=== PATIENT | female | born 1985 | race Hispanic/Latino ===

== ENCOUNTER 2017-03-25 13:38 | Observation (INO) | payer BC ==
[2017-03-25 13:43] VITALS: BMI 36.6
--- NOTE | 2017-03-25 13:55 | ED PDOC ---
Arrival/HPI - General Chief Complaint: Substance Abuse Time Seen by Provider: 03/25/17 13:42 Historian: Parent, EMS, Police EM Caveat: Altered Mental Status - History of Present Illness Time/Duration: Other (This morning) Symptom Onset: Gradual Symptom Course: Unchanged Severity Level: Moderate Activities at Onset: Rest Associated Symptoms (Text): 03/25/17 13:52 Mother reports that the patient began to act lethargic around 11:00 this morning. The lethargy worsened and 911 was called at 1300 today. Patient had a prescription for Soma 350 mg #60 filled yesterday, and there are only 34 pills left. The patient is lethargic and unable to give any history. She is oriented to person only. She had recent neck surgery several weeks ago. History of a brain tumor and the patient is blind. Past Medical History - Infectious Disease Hx of Infectious Diseases: None - Tetanus Immunization Tetanus Immunization: Unknown - Cardiac Hx Cardiac Disorders: No - Pulmonary Hx Respiratory Disorders: No - Neurological Hx Neurological Disorder: No Other/Comment: DX OF BRAIN TUMOR AUG 2016 - HEENT Hx HEENT Disorder: Yes Hx Blind: Yes (legally) - Renal Hx Renal Disorder: No - Endocrine/Metabolic Hx Endocrine Disorders: No - Hematological/Oncological Hx Blood Disorders: No - Integumentary Hx Dermatological Disorder: No - Musculoskeletal/Rheumatological Hx Musculoskeletal Disorders: Yes Hx Back Pain: Yes (AND NECK PAIN) - Gastrointestinal Hx Gastrointestinal Disorders: No - Genitourinary/Gynecological Hx Genitourinary Disorders: No Other/Comment: ovarian cyst - Psychiatric Hx Psychophysiologic Disorder: Yes Hx Anxiety: Yes Hx Depression: Yes Hx Substance Use: No - Surgical History Other/Comment: GASTRIC LAP BAND PLACEMENT AND REMOVAL 2014 .REMOVAL FIBROID AUG 2016 - Anesthesia Hx Anesthesia: Yes Hx Anesthesia Reactions: No Hx Malignant Hyperthermia: No Family/Social History - Physician Review Nursing Documentation Reviewed: Yes Family/Social History: Unknown Family HX Smoking Status: Never Smoked Hx Alcohol Use: No Hx Substance Use: No Allergies/Home Meds Allergies/Adverse Reactions: Allergies Penicillins Allergy (Verified 03/25/17 13:43) ANAPHYLAXIS Home Medications: Home Meds Medication Instructions Recorded Confirmed Fluoxetine HCl [Prozac] 40 mg PO DAILY 06/25/16 03/25/17 buPROPion [Wellbutrin] 150 mg PO DAILY 06/25/16 03/25/17 Carisoprodol [Soma] 350 mg PO BID PRN 03/25/17 03/25/17 Review of Systems - Review of Systems Systems not reviewed;Unavailable: Altered Mental Status Physical Exam Vital Signs Temp Pulse Resp BP Pulse Ox 03/25/17 15:33 101 H 19 126/75 98 03/25/17 14:25 98.3 F 104 H 20 116/63 100 Temperature: Afebrile Blood Pressure: Normal Pulse: Regular Respiratory Rate: Normal Appearance: Positive for: Well-Appearing, Non-Toxic, Comfortable, Other (Obese) Pain Distress: None Mental Status: Positive for: other (Oriented 1 only) - Systems Exam Head: Present: Atraumatic, Normocephalic Pupils: Present: Sluggish, Other (Dilated) Extroacular Muscles: Present: EOMI Conjunctiva: Present: Normal Ears: Present: NORMAL TM, Normal Canal. No: Erythema, TM Bulging Mouth: Present: Moist Mucous Membranes Pharnyx: Present: Other (Positive gag). No: ERYTHEMA, EXUDATE, TONSILS ENLARGED Neck: Present: Normal Range of Motion, Other (Well-healing posterior surgical scar with no signs of infection) Respiratory/Chest: Present: Clear to Auscultation, Good Air Exchange. No: Respiratory Distress, Accessory Muscle Use Cardiovascular: Present: Regular Rate and Rhythm, Normal S1, S2. No: Murmurs Abdomen: Present: Normal Bowel Sounds. No: Tenderness, Distention, Peritoneal Signs, Rebound, Guarding Back: Present: Normal Inspection Upper Extremity: Present: Normal Inspection. No: Cyanosis, Edema Lower Extremity: Present: Normal Inspection. No: Edema Neurological: Present: GCS=15, CN II-XII Intact, Speech Normal, Motor Func Grossly Intact, Other (Unable to test sensation coordination gait and stance) Skin: Present: Warm, Dry, Normal Color. No: Rashes Medical Decision Making ED Course and Treatment: 03/25/17 14:19 EKG shows normal sinus rhythm rate approximately [address] and T- wave changes and an old right bundle branch block when compared with EKG of 03/25/17 14:50 Unclear if this is an accidental or intentional overdose. Discussed in detail with her PMD Dr.E Nava. Patient will be admitted to a telemetry observation bed with psychiatrist called in the morning when she is able to communicate better. - Lab Interpretations Lab Results: 03/25/17 14:00 03/25/17 14:00 Lab Results 03/25/17 14:10: Urine Color Yellow, Urine Appearance Sl cloudy, Urine pH 6.0, Ur Specific West >= 1.030, Urine Protein 30 H, Urine Glucose (UA) Negative, Urine Ketones Negative, Urine Blood Negative, Urine Nitrate Negative, Urine Bilirubin Negative, Urine Urobilinogen 0.2, Ur Leukocyte Esterase Negative, Urine RBC Negative, Urine WBC 0 - 2, Ur Epithelial Cells 0 - 2, Urine Bacteria Few, Urine HCG, Qual Negative 03/25/17 14:10: Urine Opiates Screen Positive H, Urine Methadone Screen Negative , Ur Barbiturates Screen Negative, Ur Phencyclidine Scrn Negative, Ur Amphetamines Screen Negative, U Benzodiazepines Scrn Negative, U Oth Cocaine Metabols Negative, U Cannabinoids Screen Negative 03/25/17 14:00: PT 12.0 H, INR 1.11 H, APTT 25.5 03/25/17 14:00: Alcohol, Quantitative < 10 03/25/17 14:00: Salicylates < 1 L, Acetaminophen < 10.0 L 03/25/17 14:00: Sodium 140, Potassium 3.7, Chloride 105, Carbon Dioxide 24, Anion Gap 15, BUN 17, Creatinine 0.9, Est GFR ( Amer) > 60, Est GFR (Non- Af Amer) > 60, Random Glucose 99, Calcium 9.4, Total Bilirubin 0.5, AST 20, ALT 29, Alkaline Phosphatase 89, Total Creatine Kinase 51, Troponin I < 0.01, Total Protein 7.5, Albumin 4.2, Globulin 3.3, Albumin/Globulin Ratio 1.3 03/25/17 14:00: WBC 5.4, RBC 3.95, Hgb 8.4 L, Hct 27.3 L, MCV 69.1 L, MCH 21.3 L , MCHC 30.8 L, RDW 17.2 H, Plt Count 227, MPV 9.4, Gran % 63.6, Lymph % (Auto) 29.7, [place] % (Auto) 4.8, Eos % (Auto) 1.3 L, Baso % (Auto) 0.6, Gran # 3.43, Lymph # 1.6, [place] # 0.3, Eos # 0.1, Baso # 0.03 - RAD Interpretation Radiology Orders: 03/25/17 14:18 HEAD W/O CONTRAST [CT] Stat CT scan of the head as read by the radiologist shows no change in the previously identified brain mass. Bus Assistant: Radiologist Disposition/Present on Arrival - Present on Arrival Any Indicators Present on Arrival: No History of DVT/PE: No History of Uncontrolled Diabetes: No Urinary Catheter: No History of Decub. Ulcer: No History Surgical Site Infection Following: None - Disposition Have Diagnosis and Disposition been Completed?: Yes Diagnosis: Overdose, Altered mental status Disposition: HOSPITALIZED Disposition Time: 14:52 Patient Plan: Observation, Telemetry Patient Problems: Current Active Problems Problem Status Onset Altered mental status Acute Overdose Acute Condition: FAIR
[2017-03-25 14:11] LABS: ADD MANUAL DIFF? NO
[2017-03-25 14:16] LABS: BASO # 0.03 K/mm3 (0.0-2.0); BASO % 0.6 % (0.0-3.0); EOS # 0.1 (0.0-0.7); EOS % 1.3 % (1.5-5.0); GRAN # 3.43 (1.4-6.5); GRAN % 63.6 % (50.0-68.0); HEMATOCRIT 27.3 % (36.0-48.0); LYMPH # 1.6 (1.2-3.4); LYMPH % 29.7 % (22.0-35.0); MEAN CELL VOLUME 69.1 fL (80.0-105.0); MEAN CORPUSCULAR HEMOGLOBIN 21.3 pg (25.0-35.0); MEAN CORPUSCULAR HGB CONC 30.8 g/dl (31.0-37.0); MEAN PLATELET VOLUME 9.4 fl (7.0-11.0); MONO # 0.3 (0.1-0.6); MONO % 4.8 % (1.0-6.0); PLATELET COUNT 227 10^3/uL (120.0-450.0); RED CELL DISTRIBUTION WIDTH 17.2 % (11.5-14.5); WHITE BLOOD COUNT 5.4 10^3/ul (4.5-11.0)
[2017-03-25 14:21] LABS: URINE BILIRUBIN NEGATIVE (NEGATIVE); URINE BLOOD NEGATIVE (NEGATIVE); URINE GLUCOSE (UA) NEGATIVE (NEGATIVE); URINE KETONE NEGATIVE (NEGATIVE); URINE LEUKOCYTE ESTERASE NEGATIVE Leu/uL (NEGATIVE); URINE PROTEIN 30 mg/dL (<30 mg/dL); URINE UROBILINOGEN 0.2 E.U./dL (<1 E.U./dL)
[2017-03-25 14:22] LABS: URINE APPEARANCE SL CLOUDY (CLEAR); URINE COLOR YELLOW (YELLOW)
[2017-03-25 14:26] LABS: ALB/GLOB RATIO 1.3 (1.1-1.8); ALKALINE PHOSPHATASE 89 U/L (38-133); ALT/SGPT 29 U/L (7-56); AST/SGOT 20 U/L (15-39); BILIRUBIN,TOTAL 0.5 mg/dL (0.2-1.3); BLOOD UREA NITROGEN 17 mg/dL (7-21); CALCIUM 9.4 mg/dL (8.4-10.5); CARBON DIOXIDE 24 mmol/L (21-33); CHLORIDE 105 mmol/L (98-107); GFR AFRICAN-AMERICAN > 60; GLUCOSE,RANDOM 99 mg/dL (70-110); INR 1.11 (0.93-1.08); PARTIAL THROMBOPLASTIN TIME 25.5 Seconds (23.7-30.8); POTASSIUM 3.7 mmol/L (3.6-5.0); SODIUM 140 mmol/L (132-148); TOTAL PROTEIN 7.5 g/dL (5.8-8.3)
[2017-03-25 14:33] LABS: URINE BACTERIA FEW (NEG); URINE EPITHELIAL CELLS 0 - 2 /hpf (0-5); URINE RBC NEGATIVE /hpf (0-2); URINE WBC 0 - 2 /hpf (0-6)
[2017-03-25 14:38] LABS: TROPONIN I < 0.01 ng/mL
--- NOTE | 2017-03-25 15:33 | CT ---
PROCEDURE: CT HEAD WITHOUT CONTRAST. HISTORY: ams COMPARISON: 10/05/2016 TECHNIQUE: Axial computed tomography images were obtained through the head/brain without intravenous contrast. Radiation dose: Total exam DLP = 725.84 mGy-cm. This CT exam was performed using one or more of the following dose reduction techniques: Automated exposure control, adjustment of the mA and/or kV according to patient size, and/or use of iterative reconstruction technique. FINDINGS: HEMORRHAGE: No intracranial hemorrhage. BRAIN: 9 mm calcified right CP angle mass, likely extra-axial, unchanged from 10/05/2016. Most likely this represents meningioma. Rule out thrombosed aneurysm. Consider further evaluation with gadolinium enhanced magnetic resonance imaging. No other intracranial mass. No evidence of acute infarct. VENTRICLES: Unremarkable. No hydrocephalus. CALVARIUM: Unremarkable. PARANASAL SINUSES: Unremarkable as visualized. No significant inflammatory changes. MASTOID AIR CELLS: Unremarkable as visualized. No inflammatory changes. OTHER FINDINGS: None. IMPRESSION: 9 mm calcified right CP angle mass unchanged from 10/05/2016. Recommend evaluation with gadolinium enhanced magnetic resonance imaging. No additional abnormality.
[2017-03-25] MEDS ORDERED: Dextrose 5%/0.45% NS 1,000 ML IV SCH (17:45)
[2017-03-25 18:28] VITALS: O2SAT 98
--- NOTE | 2017-03-26 01:30 | CARD ---
APPROVED REPORT EKG Measurement Heart [id number] <Conclusion> Normal sinus rhythm Possible Left atrial enlargement Incomplete right bundle branch block Left ventricular hypertrophy Nonspecific T wave abnormality Prolonged QT Abnormal ECG
[2017-03-26 06:37] VITALS: RESP 20
[2017-03-26] MEDS ORDERED: Oxycodone/Acetaminophen 5/325 mg Tab PO PRN ×2 (09:48→12:19)
[2017-03-26] MEDS ORDERED: oxyCODONE 10 mg ER Tab (oxyCONTIN) PO SCH (10:00)
[2017-03-26 12:19] VITALS: BP 133/79; PULSE 72; TEMP 98.4
--- NOTE | 2017-03-26 13:26 | CON ---
DATE: 03/26/2017 HISTORY OF PRESENT ILLNESS: The patient is a 32-year-old white female. I reviewed the charts, spoke to patient, spoke to patient's mother. The patient apparently was brought to the Emergency Room aft er her mother called the ambulance, having found her daughter in an incoherent state in her home. Th e patient apparently had been given prescriptions by her primary care physician of [facility]. The patient states she was having problems with pain and spasm in her neck. The patient started taking the pres cription, took 1, then 2, then 3 and then apparently became incoherent and does not remember anything . The patient claims that she was not trying to kill herself, that she was only trying to get the de sired effect from medication. The patient's mother found originally there were 60 tablets in the bot tle just the day before prescribed and then when she counted them, there were only 34 left. The cydney ent states she is on multiple antidepressants which she has been on for 8 years, now being prescribed by her family physician. 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 PAST MEDICAL HISTORY: She claims she started seeing a psychiatrist for depression at the age of 24, saw 3 different psychiatrists, but has not seen a psychiatrist for the past year. She is treated wit h Prozac and Wellbutrin, which she is maintained with her primary care physician. The patient also t akes oxycodone 30 mg twice a day for neck pain and other pain issues. The patient has never had any other substance abuse. She has never had any suicide attempts. The patient has never had any psychi atric hospitalizations. 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 CURRENT MEDICATIONS: At home include Wellbutrin 150 mg daily, Prozac 40 mg daily, oxycodone 30 mg tw ice a day. CURRENT LABORATORY DATA: Her white count is 5800; hemoglobin is 8.4; platelet count 227,000. Her me tabolic profile is all totally normal. Her urine for toxicology is positive for opiates. She had no alcohol in her system. The patient's urinalysis was essentially normal. Her urine hCG t est was negative. PERSONAL HISTORY: She is unmarried. She is a college graduate. She lives at home with her mother a nd father. She has a sister and brother who live in [place] and [place]. 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 REVIEW OF SYSTEMS: She claims that she has neck stiffness and discomfort. Otherwise, she has no oth er contributory complaints on review of systems. PHYSICAL EXAMINATION: VITAL SIGNS: Her blood pressure is 130/88, pulse 79. She is afebrile, respirations 20 per minute. PSYCHIATRIC: Her mental status: She is awake, alert, coherent, lucid, oriented x 3. Speech is flue nt. Thoughts are well integrated. No suicidal ideation or psychotic symptoms. The patient's recent and remote memory except for events of the past 2 days after taking an overdose was within normal li mits. IMPRESSION: The patient has an accidental overdose and subsequent delirium from Soma in combination with oxycodone, Wellbutrin and Prozac. She has a history of recurrent depression. She is on mainten ance antidepressant medication. She has no evidence of any current signs of depression or suicidal i deation or psychosis. PLAN: From my point of view, the patient can be discharged. I strongly recommend to patient that e consults periodically with a psychiatrist on an outpatient basis to monitor at the very least her p sychotropic medications and other medicines that she is receiving. Andrew Perez MD cc: [id number] TT: 03/26/2017 13:26:23 Confirmation # [id number] Dictation # [id number]
== END 2017-03-26 15:01 | disposition home or self-care (01) ==
LOC: ED 13:38 → ERH 14:54 → 2RNO 17:54
PROVIDERS: ADMIT Internal Medicine; ATTEND Internal Medicine
DX: T42.8X1A Poisoning by antiparkinsonism drugs and other central muscle-tone depressants, accidental (unintentional), initial encounter (principal); T40.2X1A Poisoning by other opioids, accidental (unintentional), initial encounter; T43.291A Poisoning by other antidepressants, accidental (unintentional), initial encounter; T43.221A Poisoning by selective serotonin reuptake inhibitors, accidental (unintentional), initial encounter; R41.0 Disorientation, unspecified; F33.9 Major depressive disorder, recurrent, unspecified; H54.8 Legal blindness, as defined in USA; Y92.009 Unspecified place in unspecified non-institutional (private) residence as the place of occurrence of the external cause
CPT/HCPCS: 70450; 80053; 81001; 82550; 82948; 84484; 84703; 85025; 85610; 85730; 93005; 99285; G0378; G0480; J7042

== ENCOUNTER 2018-04-19 13:18 | Emergency (ER) | payer BC ==
[2018-04-19 13:29] VITALS: RESP 18; TEMP 98.3; O2SAT 100; BMI 44.2
[2018-04-19] MEDS ORDERED: HYDROmorphone 0.5 mg/0.5 ml ISec IVP STA (13:55)
[2018-04-19] MEDS ORDERED: Sodium Chloride 0.9% 500 ML IV STA (13:59)
--- NOTE | 2018-04-19 14:03 | ED PDOC ---
Arrival/HPI - General Chief Complaint: Pain, Chronic Time Seen by Provider: 04/19/18 13:54 Historian: Patient, Parent ( is at bedside) - History of Present Illness Narrative History of Present Illness (Text): 04/19/18 14:00 pt p/w + sudden onset of right neck spasm/pain, at most pain is 8-9/10; pt states the symptom started ~ 8am this morning, pt was just sitting at home, no extraordinary tasks performed prior to onset of her neck pain, no new medications/foods/herbal supplements; pt denied fever/chills/sweats, no chest pain/shortness of breath/palpitations, no abd pain, + mild nausea, no vomiting, + profuse sweating, mild dizziness, no headache/vision changes, no speech changes, no urinary/bowel changes, no fall/trauma/sick contact, no travel; pt states she has had prior similar symptoms in the past prior to her cervical surgery and she would usually have acute flares/neck pain every few months; pt states no arm/leg weakness, no numbness/tingling; pt denied facial changes; pt is here for further eval. pt's without other complaints. PCP: Dr Goldberg Neurosurg: Dr Valentin (bantry) right hand dominate pt lives with family at home Time/Duration: Prior to Arrival Symptom Onset: Sudden Symptom Course: Worsening Quality: Tightness, Cramping Severity Level: Severe Activities at Onset: Rest Context: Home Past Medical History - Provider Review Nursing Documentation Reviewed: Yes - Travel History Have you recently traveled outside [place] w/in the past 3 mons?: No - Past History Past History: Non-Contributing - Infectious Disease Hx of Infectious Diseases: None - Tetanus Immunization Tetanus Immunization: Unknown - Reproductive Menopause: No Currently : Unknown - Cardiac Hx Cardiac Disorders: No - Pulmonary Hx Respiratory Disorders: No - Neurological Hx Neurological Disorder: No Other/Comment: DX OF BRAIN TUMOR AUG 2016 - HEENT Hx HEENT Disorder: Yes Hx Blind: Yes (legally) - Renal Hx Renal Disorder: No - Endocrine/Metabolic Hx Endocrine Disorders: No - Hematological/Oncological Hx Blood Disorders: No - Integumentary Hx Dermatological Disorder: No - Musculoskeletal/Rheumatological Hx Falls: No - Gastrointestinal Hx Gastrointestinal Disorders: No - Genitourinary/Gynecological Hx Genitourinary Disorders: No Other/Comment: ovarian cyst - Psychiatric Hx Psychophysiologic Disorder: Yes Hx Anxiety: Yes Hx Depression: Yes Hx Substance Use: No - Surgical History Other/Comment: GASTRIC LAP BAND PLACEMENT AND REMOVAL 2014 .REMOVAL FIBROID AUG 2016 - Anesthesia Hx Anesthesia: Yes Hx Anesthesia Reactions: No Hx Malignant Hyperthermia: No Family/Social History - Physician Review Nursing Documentation Reviewed: Yes Family/Social History: No Known Family HX Smoking Status: Never Smoked Hx Alcohol Use: No Hx Substance Use: No Hx Substance Use Treatment: No Allergies/Home Meds Allergies/Adverse Reactions: Allergies Penicillins Allergy (Verified 04/19/18 16:51) ANAPHYLAXIS Home Medications: Home Meds Medication Instructions Recorded Confirmed Fluoxetine HCl [Prozac] 40 mg PO DAILY 06/25/16 04/19/18 buPROPion [Wellbutrin] 150 mg PO DAILY 06/25/16 04/19/18 oxyCODONE/Acetaminophen [Percocet 30 mg PO TID 04/19/18 04/19/18 5/325 mg Tab] Review of Systems - Review of Systems Constitutional: Normal Eyes: Normal ENT: Normal Respiratory: Normal Cardiovascular: Normal Gastrointestinal: Normal Genitourinary Female: Normal Musculoskeletal: Neck Pain. absent: Arthralgias, Back Pain, Joint Swelling, Myalgias Skin: Normal Neurological: Headache, Other (right neck pain/spasm) Endocrine: Normal Hemo/Lymphatic: Normal Psychiatric: Normal Physical Exam - Physical Exam Narrative Physical Exam (Text): 04/19/18 14:02 General: alert/awake, GCS = 15, oriented x 3, resting in bed, uncomfortable, cooperative, interactive; moderate distress due to pain Head: NC/AT EYE: PERRLA, EOMI, sclera anicteric, no nystagmus, no photophobia; visual field intact b/l Facial: WNL Oral: uvula/tongue are midline, no exudate/lesions, no drooling/stridor, no dysphonia; intact dentitions; moist oral mucosa NECK: + spasm to neck is noted, pt's neck turned to the left, difficulty with turn neck to the right, no midline tenderness, no nuchal rigidity, no meningeal signs; no step off; pt is wearing a soft collar Chest: CTA b/l, no w/r/r; no tachypenia, no accessory muscle use noted Cardiac: +S1, +S2, no m/r/r, no tachycardia Abdominal: +BS, soft/nd/nt, well nourished/obese patient; no masses/rebound/ guarding/rigidity; no clarke's sign, no mcburney's point tenderness Extremities: intact ROM, strength 5/5 grossly intact in all limbs, neurovasc intact b/l; + ambulatory; reflex +2/2; no pitting edema/swelling b/l; no Luke' s sign b/l BACK: no step off, no midline tenderness, NO crepitus, no gross deformities noted; Intact ROM SKIN: cap refill < 1 sec, no ulcerations, no petechiae, no rashes; + diaphoresis NEURO: CNII-XII WNL, no facial asymmetries, no slurr speech, oriented x 3 NIH stroke scale ~ 0 Psych: normal insight, normal affect; follows command with ease Vital Signs Reviewed: Yes Vital Signs Temp Pulse Resp BP Pulse Ox 04/19/18 17:00 94 H 18 175/86 H 100 04/19/18 15:07 18 148/98 H 04/19/18 13:25 98.3 F 107 H 18 147/106 H 100 Temperature: Afebrile Blood Pressure: Hypertensive Pulse: Tachycardic Respiratory Rate: Normal Appearance: Positive for: Well-Appearing, Uncomfortable Pain Distress: Moderate Mental Status: Positive for: Alert and Oriented X 3 - Systems Exam Head: Present: Atraumatic, Normocephalic Medical Decision Making ED Course and Treatment: 04/19/18 14:02 Impression: right neck spasm/pain i have consider all the differential diagnosis regarding pt's chief medical complaints/clinical findings, including but are not limited to: neck spasm/pain ; unlikely infection; unlikely meningitis A/P: right neck pain/spasm - ct - labs - iv - supportive care - observe/reevaluation 04/19/18 16:38 On re-evaluation, patient reports marked improvement in her pain; she states the pain is currently 1-2/10. She is currently awaiting CT C-Spine results. Will continue to monitor. 04/19/18 17:28 pt continues to have near resolution of pain/spasm of her neck/cervical region pt is comfortable pt is made aware of her medical results pt is encouraged no heavy lifting/prolonged standing/walking pt will follow up as directed pt will be discharged home improved vital signs are noted Paging Dr Starkey (ortho at [place]) to notify them of pt's emergency department presentation/CT results 04/19/18 18:[address] Starkey, made aware of pt's emergency department presentation/ complaints/mgt/txt, agrees with emergency department mgt/txt, and will follow up with patient as outpt next week Re-evaluation Time: 16:30 Reassessment Condition: Improved - Lab Interpretations Lab Results: 04/19/18 14:30 04/19/18 14:30 Lab Results 04/19/18 14:30: Sodium 143, Potassium 4.0, Chloride 103, Carbon Dioxide 25, Anion Gap 19, BUN 16, Creatinine 0.8, Est GFR ( Amer) > 60, Est GFR (Non- Af Amer) > 60, Random Glucose 112 H, Calcium 9.8, Total Bilirubin 0.3, AST 30, ALT 47, Alkaline Phosphatase 108, Total Protein 8.3, Albumin 4.7, Globulin 3.5, Albumin/Globulin Ratio 1.3 04/19/18 14:30: WBC 9.3 D, RBC 5.48, Hgb 13.2, Hct 41.3, MCV 75.4 L, MCH 24.1 L , MCHC 32.0, RDW 15.0 H, Plt Count 358, MPV 9.1, Gran % 62.6, Lymph % (Auto) 31.4, [place] % (Auto) 4.9, Eos % (Auto) 0.9 L, Baso % (Auto) 0.2, Gran # 5.85, Lymph # (Auto) 2.9, [place] # (Auto) 0.5, Eos # (Auto) 0.1, Baso # (Auto) 0.02 04/19/18 14:15: Urine HCG, Qual Negative I have reviewed the lab results: Yes Interpretation: All labs normal - RAD Interpretation Narrative RAD Interpretations (Text): 04/19/18 16:18 PROCEDURE: CT HEAD WITHOUT CONTRAST. HISTORY: hx of brain lesion, no trauma, R neck pain/spasm COMPARISON: 04/25/2017 TECHNIQUE: Axial computed tomography images were obtained through the head/brain without intravenous contrast. Radiation dose: Total exam DLP = 841.58 mGy-cm. This CT exam was performed using one or more of the following dose reduction techniques: Automated exposure control, adjustment of the mA and/or kV according to patient size, and/or use of iterative reconstruction technique. FINDINGS: HEMORRHAGE: No intracranial hemorrhage. BRAIN: Confirmation of right CPA mass less than 1 cm calcified consistent with an angioma, finding identified on the prior study. There is no interval change. No atrophy or chronic microvascular ischemic changes. VENTRICLES: Unremarkable. No hydrocephalus. CALVARIUM: Unremarkable. PARANASAL SINUSES: Unremarkable as visualized. No significant inflammatory changes. MASTOID AIR CELLS: Unremarkable as visualized. No inflammatory changes. OTHER FINDINGS: None. IMPRESSION: No acute intracranial abnormalities. No significant findings to account for the clinical presentation. 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 Overall, no interval change. ---- PROCEDURE: CT cervical spine 04/19/2018 HISTORY: Status post cervical spine surgery surg 1 year ago, now with severe spasm COMPARISON: Correlation made with plain film radiographs of the cervical spine 10/05/2016 TECHNIQUE: Contiguous helical/ transaxial sections were obtained of the cervical spine without the use of intravenous contrast. Coronal and sagittal reformatted images were created and reviewed. Radiation dose: Total exam DLP = 777.73 mGy-cm. This CT exam was performed using one or more of the following dose reduction techniques: Automated exposure control, adjustment of the mA and/or kV according to patient size, and/or use of iterative reconstruction technique. . FINDINGS: VERTEBRAE: The current study reveals multilevel bilateral laminectomy from the C3 through the C6-C7 levels. . . There has been posterior fixation accomplished by placement of bilateral Moody rods that are attached to the right and left pedicles of the C3, through the C7 segments. There are the linear bone lucencies surrounding posterior fixation screws at C7 segment bilaterally with diameters ranging up to and greater than 2 mm along the posterior margins of the screws particularly along the at the posterior entry sites of the fixation screws. The possibility of loosening or infection to be considered however former is favored due to the smooth cortical of appearance of the inner of margins of the screw holes pain no obvious cortical destructive changes. . Hardware is otherwise intact. There is mild of reversal of the normal cervical lordosis. Vertebral bodies and facets otherwise normally aligned. DISCS/SPINAL CANAL/NEURAL FORAMINA: Mild multilevel degenerative spondylosis. Changes include varying degrees of mild the disc space narrowing more so along the anterior disc margins with small marginal anterior osteophyte formation. No obvious disc herniation seen at any level however the canal is partially obscured by streak and beam hardening artifact arising from posterior fixation hardware. . The overall bony canal however is quite capacious due to the bilateral laminectomy defects. The exit foramina appear adequate at the C2-C3, C3-C4 and slightly narrowed on the right side at the C4-C5 level due to overgrown facets. Exit foramina appear marginal the minimally narrowed at C5-C6 level. PARASPINAL SOFT TISSUES: Paraspinal soft tissues unremarkable OTHER FINDINGS: None. IMPRESSION: Multilevel bilateral laminectomy and posterior fixation involving the C3 through the C6-C7 levels. There are lucencies surrounding the inferior fixation screws at the C7 level which range up to and over 2 mm at the level of the posterior entry sites. The possibility of loosening or infection at to be considered although the former on is favored compared to the latter due to smooth appearing inner surfaces of the screw hole some cells with no obvious destructive changes hardware is otherwise intact Radiology Orders: 04/19/18 13:58 HEAD W/O CONTRAST [CT] Stat 04/19/18 13:59 CERVICAL SPINE W/O CONTRAST [CT] Stat Quality Control Tester: Radiologist - Medication Orders Current Medication Orders: Discontinued Medications Diazepam (Valium) 10 mg PO ONCE ONE PRN Reason: Protocol Stop: 04/19/18 13:56 Last Admin: 04/19/18 14:09 Dose: 10 mg Hydromorphone HCl (Dilaudid) 1 mg IVP STAT STA Stop: 04/19/18 13:56 Last Admin: 04/19/18 14:08 Dose: 1 mg MAR Pain Assessment Document 04/19/18 14:08 TIFFANI (Rec: 04/19/18 14:08 TIFFANI [id number]) Pain Reassessment Is this a pain reassessment? No Sleep Is patient sleeping during reassessment? No Presence of Pain Presence of Pain Yes IVP Administration Document 04/19/18 14:08 TIFFANI (Rec: 04/19/18 14:08 [facility] [id number]) Charges for Administration # of IVP Administrations 1 Re-Assess: GERALDO Pain Assessment Document 04/19/18 15:08 TIFFANI (Rec: 04/19/18 17:04 TIFFANI [id number]) Pain Reassessment Is this a pain reassessment? Yes Sleep Is patient sleeping during reassessment? No Presence of Pain Presence of Pain Yes Pain Scale Used Pain Scale Used Numeric Description Description Intermittent Intensity of Pain at present 4 Sodium Chloride (Sodium Chloride 0.9%) 500 mls @ 999 mls/hr IV .Q31M STA Stop: 04/19/18 14:29 Last Admin: 04/19/18 14:11 Dose: 999 mls/hr eMAR Start Stop Document 04/19/18 14:11 TIFFANI (Rec: 04/19/18 14:12 [facility] [id number]) Intravenous Solution Start Date 04/19/18 Start Time 14:11 End Date 04/19/18 End time 15:11 Total Infusion Time 60 Ketorolac Tromethamine (Toradol) 30 mg IVP STAT STA Stop: 04/19/18 13:56 Last Admin: 04/19/18 14:09 Dose: 30 mg GERALDO Pain Assessment Document 04/19/18 14:09 TIFFANI (Rec: 04/19/18 14:09 [facility] [id number]) Pain Reassessment Is this a pain reassessment? No Sleep Is patient sleeping during reassessment? No Presence of Pain Presence of Pain Yes IVP Administration Document 04/19/18 14:09 TIFFANI (Rec: 04/19/18 14:09 [id number]) Charges for Administration # of IVP Administrations 1 Disposition/Present on Arrival - Present on Arrival Any Indicators Present on Arrival: No History of DVT/PE: No History of Uncontrolled Diabetes: No Urinary Catheter: No History of Decub. Ulcer: No History Surgical Site Infection Following: None - Disposition Have Diagnosis and Disposition been Completed?: Yes Diagnosis: Spasm of cervical paraspinous muscle, Cervical pain, Elevated blood pressure reading Disposition: HOME/ ROUTINE Disposition Time: 17:08 Patient Plan: Discharge Condition: STABLE Discharge Instructions (ExitCare): Muscle Spasms (DC), Chronic Neck Pain (DC), Hypertension (ED) Print Language: TURKISH Additional Instructions: Make sure to see your doctor in 1-2 days DRINK PLENTY OF FLUIDS take your medications as prescribed AVOID heavy lifting AVOID prolonged standing RETURN TO ED IF worse pain, cant breath, persistent vomiting, high fever >101- 102 for hours, altered behavior, slurr speech, facial changes, focal weakness ( arm/leg or both), unable to urinate, heavy/persistent bleeding, passing out, chest pain, or other medical emergencies Prescriptions: diaZEpam [Valium] 5 mg PO TID PRN #12 tab PRN Reason: Muscle Spasm Ibuprofen [Motrin] 600 mg PO QID PRN #30 tab PRN Reason: Pain, Mild (1-3) Referrals: Candelario Nava MD [Primary Care Provider] - Follow up with primary Forms: [employer] (Greek)
[2018-04-19 14:46] LABS: BASO # 0.02 K/mm3 (0.0-2.0); BASO % 0.2 % (0.0-3.0); EOS # 0.1 (0.0-0.7); EOS % 0.9 % (1.5-5.0); GRAN # 5.85 (1.4-6.5); GRAN % 62.6 % (50.0-68.0); HEMOGLOBIN 13.2 g/dL (12.0-16.0); LYMPH # 2.9 (1.2-3.4); LYMPH % 31.4 % (22.0-35.0); MEAN CELL VOLUME 75.4 fl (80.0-105.0); MEAN CORPUSCULAR HEMOGLOBIN 24.1 pg (25.0-35.0); MEAN PLATELET VOLUME 9.1 fl (7.0-11.0); MONO # 0.5 (0.1-0.6); MONO % 4.9 % (1.0-6.0); RBC 5.48 10^6/uL (3.5-6.1); WHITE BLOOD COUNT 9.3 10^3/ul (4.5-11.0)
[2018-04-19 14:48] LABS: ALB/GLOB RATIO 1.3 (1.1-1.8); ALBUMIN 4.7 g/dL (3.0-4.8); ALT/SGPT 47 U/L (7-56); AST/SGOT 30 U/L (14-36); BLOOD UREA NITROGEN 16 mg/dL (7-21); CALCIUM 9.8 mg/dL (8.4-10.5); GFR AFRICAN-AMERICAN > 60; GFR NON-AFRICAN AMERICAN > 60
--- NOTE | 2018-04-19 16:20 | CT ---
PROCEDURE: CT HEAD WITHOUT CONTRAST. HISTORY: hx of brain lesion, no trauma, R neck pain/spasm COMPARISON: 04/25/2017 TECHNIQUE: Axial computed tomography images were obtained through the head/brain without intravenous contrast. Radiation dose: Total exam DLP = 841.58 mGy-cm. This CT exam was performed using one or more of the following dose reduction techniques: Automated exposure control, adjustment of the mA and/or kV according to patient size, and/or use of iterative reconstruction technique. FINDINGS: HEMORRHAGE: No intracranial hemorrhage. BRAIN: Confirmation of right CPA mass less than 1 cm calcified consistent with an angioma, finding identified on the prior study. There is no interval change. No atrophy or chronic microvascular ischemic changes. VENTRICLES: Unremarkable. No hydrocephalus. CALVARIUM: Unremarkable. PARANASAL SINUSES: Unremarkable as visualized. No significant inflammatory changes. MASTOID AIR CELLS: Unremarkable as visualized. No inflammatory changes. OTHER FINDINGS: None. IMPRESSION: No acute intracranial abnormalities. No significant findings to account for the clinical presentation. 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 Overall, no interval change.
--- NOTE | 2018-04-19 16:52 | CT ---
PROCEDURE: CT cervical spine 04/19/2018 HISTORY: Status post cervical spine surgery surg 1 year ago, now with severe spasm COMPARISON: Correlation made with plain film radiographs of the cervical spine 10/05/2016 TECHNIQUE: Contiguous helical/ transaxial sections were obtained of the cervical spine without the use of intravenous contrast. Coronal and sagittal reformatted images were created and reviewed. Radiation dose: Total exam DLP = 777.73 mGy-cm. This CT exam was performed using one or more of the following dose reduction techniques: Automated exposure control, adjustment of the mA and/or kV according to patient size, and/or use of iterative reconstruction technique. . FINDINGS: VERTEBRAE: The current study reveals multilevel bilateral laminectomy from the C3 through the C6-C7 levels. . . There has been posterior fixation accomplished by placement of bilateral Moody rods that are attached to the right and left pedicles of the C3, through the C7 segments. There are the linear bone lucencies surrounding posterior fixation screws at C7 segment bilaterally with diameters ranging up to and greater than 2 mm along the posterior margins of the screws particularly along the at the posterior entry sites of the fixation screws. The possibility of loosening or infection to be considered however former is favored due to the smooth cortical of appearance of the inner of margins of the screw holes pain no obvious cortical destructive changes. . Hardware is otherwise intact. There is mild of reversal of the normal cervical lordosis. Vertebral bodies and facets otherwise normally aligned. DISCS/SPINAL CANAL/NEURAL FORAMINA: Mild multilevel degenerative spondylosis. Changes include varying degrees of mild the disc space narrowing more so along the anterior disc margins with small marginal anterior osteophyte formation. No obvious disc herniation seen at any level however the canal is partially obscured by streak and beam hardening artifact arising from posterior fixation hardware. . The overall bony canal however is quite capacious due to the bilateral laminectomy defects. The exit foramina appear adequate at the C2-C3, C3-C4 and slightly narrowed on the right side at the C4-C5 level due to overgrown facets. Exit foramina appear marginal the minimally narrowed at C5-C6 level. PARASPINAL SOFT TISSUES: Paraspinal soft tissues unremarkable OTHER FINDINGS: None. IMPRESSION: Multilevel bilateral laminectomy and posterior fixation involving the C3 through the C6-C7 levels. There are lucencies surrounding the inferior fixation screws at the C7 level which range up to and over 2 mm at the level of the posterior entry sites. The possibility of loosening or infection at to be considered although the former on is favored compared to the latter due to smooth appearing inner surfaces of the screw hole some cells with no obvious destructive changes hardware is otherwise intact
[2018-04-19 17:13] VITALS: PULSE 94
[2018-04-19 18:06] VITALS: BP 175/86
== END 2018-04-19 17:30 | disposition home or self-care (01) ==
LOC: ED 13:18
DX: M62.838 Other muscle spasm (principal); M54.2 Cervicalgia; R03.0 Elevated blood-pressure reading, without diagnosis of hypertension
CPT/HCPCS: 70450; 72125; 80053; 84703; 85025; 96361; 96374; 96375; 99283; J1170; J1885; J7040

== ENCOUNTER 2018-04-23 10:21 | Emergency (ER) | payer BC ==
[2018-04-23 10:22] VITALS: BMI 44.2
[2018-04-23 11:01] VITALS: RESP 18
--- NOTE | 2018-04-23 11:11 | ED PDOC ---
Arrival/HPI - General Time Seen by Provider: 04/23/18 10:54 Historian: Patient - History of Present Illness Narrative History of Present Illness (Text): 04/23/18 11:10 This 33 yo female with pmh chronic neck pain, legally blind female since , presents to this ED c/o x 4 days. Patient stated she woke up with neck pain. She stated she came to this ED for neck pain. Patient was seen here and she had labs, and CT scan of head and neck. Both CT scan were negative for acute finding. Patient pain had improved. Patient was recommended to f/u Dr. Starkey, surgeon from [facility]. Patient admits similar neck pain in the past. Patient denies fever, recent travel, sob, cp, abdominal pain, urinary symptoms, or dizziness. Time/Duration: Other (see hpi) Quality: Aching Context: Home Past Medical History - Provider Review Nursing Documentation Reviewed: Yes - Past History Past History: Non-Contributing - Infectious Disease Hx of Infectious Diseases: None - Tetanus Immunization Tetanus Immunization: Unknown - Cardiac Hx Cardiac Disorders: No - Pulmonary Hx Respiratory Disorders: No - Neurological Hx Neurological Disorder: No Other/Comment: DX OF BRAIN TUMOR AUG 2016 - HEENT Hx HEENT Disorder: Yes Hx Blind: Yes (legally) - Renal Hx Renal Disorder: No - Endocrine/Metabolic Hx Endocrine Disorders: No - Hematological/Oncological Hx Blood Disorders: No - Integumentary Hx Dermatological Disorder: No - Musculoskeletal/Rheumatological Hx Falls: No - Gastrointestinal Hx Gastrointestinal Disorders: No - Genitourinary/Gynecological Hx Genitourinary Disorders: No Other/Comment: ovarian cyst - Psychiatric Hx Psychophysiologic Disorder: Yes Hx Anxiety: Yes Hx Depression: Yes Hx Substance Use: No - Surgical History Other/Comment: GASTRIC LAP BAND PLACEMENT AND REMOVAL 2014 .REMOVAL FIBROID AUG 2016 - Anesthesia Hx Anesthesia: Yes Hx Anesthesia Reactions: No Hx Malignant Hyperthermia: No Family/Social History - Physician Review Nursing Documentation Reviewed: Yes Family/Social History: Other (noncontributory) Smoking Status: Never Smoked Hx Alcohol Use: No Hx Substance Use: No Hx Substance Use Treatment: No Allergies/Home Meds Allergies/Adverse Reactions: Allergies Penicillins Allergy (Verified 04/23/18 11:23) ANAPHYLAXIS Review of Systems - Review of Systems Constitutional: Normal. absent: Fatigue, Weight Change, Fevers, Night Sweats Eyes: Normal ENT: Normal Respiratory: Normal Cardiovascular: Normal Gastrointestinal: Normal Genitourinary Female: Normal Musculoskeletal: Neck Pain Skin: Normal Neurological: Normal Endocrine: Normal Hemo/Lymphatic: Normal Psychiatric: Normal Physical Exam Vital Signs Temp Pulse Resp BP Pulse Ox 04/23/18 12:58 99.2 F 86 18 141/76 99 04/23/18 10:58 98.1 F 96 H 18 143/88 98 Temperature: Afebrile Blood Pressure: Normal Pulse: Regular Respiratory Rate: Normal Appearance: Positive for: Well-Appearing, Non-Toxic, Comfortable Pain Distress: None Mental Status: Positive for: Alert and Oriented X 3 - Systems Exam Head: Present: Atraumatic, Normocephalic Pupils: Present: PERRL Extroacular Muscles: Present: EOMI Conjunctiva: Present: Normal Mouth: Present: Moist Mucous Membranes Neck: Present: Paraspinal Tenderness ((+) mild left paravertebral tenderness. No vertebral point tenderness. No vertebral step off.), Trachea Midline. No: Meningeal Signs, MIDLINE TENDERNESS Respiratory/Chest: Present: Clear to Auscultation, Good Air Exchange. No: Respiratory Distress, Accessory Muscle Use Cardiovascular: Present: Regular Rate and Rhythm, Normal S1, S2. No: Murmurs Abdomen: No: Tenderness, Distention, Peritoneal Signs Back: Present: Normal Inspection. No: CVA Tenderness Upper Extremity: Present: Normal Inspection, Normal ROM, NORMAL PULSES, Neurovascularly Intact, Capillary Refill < 2s. No: Cyanosis, Edema Lower Extremity: Present: Normal Inspection, NORMAL PULSES, Normal ROM, Neurovascularly Intact, Capillary Refill < 2 s. No: Edema Neurological: Present: GCS=15, CN II-XII Intact, Speech Normal, Motor Func Grossly Intact, Normal Sensory Function, Normal Cerebellar Funct, Gait Normal, Memory Normal Skin: Present: Warm, Dry, Normal Color. No: Rashes Psychiatric: Present: Alert, Oriented x 3, Normal Insight, Normal Concentration Medical Decision Making ED Course and Treatment: 04/23/18 12:16 Patient does not want to take Valium or Toradol, unless she is given Dilaudid. Patient and patient's mother stated Dilaudid is the only medication which relief her pain. Patient feels she is going to Opiods withdrawal since she has not been able to take pain medication for 3 days. 06/19/18 18:[address] Nava regarding MRI of cervical spine, which was negative for abscess or acute findings. Physical exam was unremarkable , except for left paravertebral tenderness, no cellulitis, no skin lesion, or ecchymosis. Patient is afebrile. I reviewed labs with WBC of 12, and ESR 26. Patient symptoms have improved. Dr. Nava agreed with plan for d/c patient home, to prescribed anti-imflammatory meds , since patient should have enough opiods pain medication. And to see Dr. Nava tomorrow morning. Also to have patient see Chance Brice, neurosurgeon in 1-2 days. Re-evaluation Time: 15:31 Reassessment Condition: Re-examined - Lab Interpretations Lab Results: 04/23/18 11:55 04/23/18 11:55 Lab Results 04/23/18 15:08: PT 12.8 H, INR 1.12 H, APTT 30.6 04/23/18 11:55: ESR 27 H 04/23/18 11:55: Urine HCG, Qual Negative 04/23/18 11:55: Sodium 148, Potassium 3.5 L, Chloride 104, Carbon Dioxide 27, Anion Gap 20, BUN 13, Creatinine 0.8, Est GFR ( Amer) > 60, Est GFR (Non- Af Amer) > 60, Random Glucose 131 H, Calcium 10.2, Total Bilirubin 0.6, AST 31, ALT 46, Alkaline Phosphatase 112, Total Protein 9.0 H, Albumin 5.1 H, Globulin 3.9, Albumin/Globulin Ratio 1.3 04/23/18 11:55: WBC 12.0 H D, RBC 5.77, Hgb 14.1, Hct 43.2, MCV 74.9 L, MCH 24.4 L, MCHC 32.6, RDW 16.0 H, Plt Count 423, MPV 9.2, Gran % 77.5 H, Lymph % ( Auto) 17.9 L, Bucks % (Auto) 4.4, Eos % (Auto) 0.0 L, Baso % (Auto) 0.2, Gran # 9.32 H, Lymph # (Auto) 2.2, Bucks # (Auto) 0.5, Eos # (Auto) 0.0, Baso # (Auto) 0.02 I have reviewed the lab results: Yes Interpretation: No sign. chg./baseline - RAD Interpretation Narrative RAD Interpretations (Text): 04/23/18 14:35 FINDINGS: LOWER THORAX: Unremarkable. LIVER: Unremarkable. No gross lesion or ductal dilatation. GALLBLADDER AND BILE DUCTS: Unremarkable. PANCREAS: Unremarkable. No gross lesion or ductal dilatation. SPLEEN: Unremarkable. ADRENALS: Unremarkable. No mass. KIDNEYS AND URETERS: Unremarkable. No hydronephrosis. No solid mass. VASCULATURE: Unremarkable. No aortic aneurysm. BOWEL: Unremarkable. No obstruction. No gross mural thickening. APPENDIX: Unremarkable. Normal appendix. PERITONEUM: Unremarkable. No free fluid. No free air. LYMPH NODES: Unremarkable. No enlarged lymph nodes. BLADDER: Unremarkable. REPRODUCTIVE: Unremarkable. BONES: No acute fracture. OTHER FINDINGS: None. IMPRESSION: No acute intra-abdominal findings 04/23/18 14:46 FINDINGS: VERTEBRAE: The current study reveals multilevel bilateral laminectomy from the C3 through the C6-C7 levels. . . There has been posterior fixation accomplished by placement of bilateral Moody rods that are attached to the right and left pedicles of the C3, through the C7 segments. There are the linear bone lucencies surrounding posterior fixation screws at C7 segment bilaterally with diameters ranging up to and greater than 2 mm along the posterior margins of the screws particularly along the at the posterior entry sites of the fixation screws. The possibility of loosening or infection to be considered however former is favored due to the smooth cortical of appearance of the inner of margins of the screw holes pain no obvious cortical destructive changes. . Hardware is otherwise intact. There is mild of reversal of the normal cervical lordosis. Vertebral bodies and facets otherwise normally aligned. DISCS/SPINAL CANAL/NEURAL FORAMINA: Mild multilevel degenerative spondylosis. Changes include varying degrees of mild the disc space narrowing more so along the anterior disc margins with small marginal anterior osteophyte formation. No obvious disc herniation seen at any level however the canal is partially obscured by streak and beam hardening artifact arising from posterior fixation hardware. . The overall bony canal however is quite capacious due to the bilateral laminectomy defects. The exit foramina appear adequate at the C2-C3, C3-C4 and slightly narrowed on the right side at the C4-C5 level due to overgrown facets. Exit foramina appear marginal the minimally narrowed at C5-C6 level. PARASPINAL SOFT TISSUES: Paraspinal soft tissues unremarkable OTHER FINDINGS: None. IMPRESSION: Multilevel bilateral laminectomy and posterior fixation involving the C3 through the C6-C7 levels. There are lucencies surrounding the inferior fixation screws at the C7 level which range up to and over 2 mm at the level of the posterior entry sites. The possibility of loosening or infection at to be considered although the former on is favored compared to the latter due to smooth appearing inner surfaces of the screw hole some cells with no obvious destructive changes hardware is otherwise intact 04/23/18 18:24 FINDINGS: Cervical curvature is seen straightened in the interval. No interval spondylolisthesis or suspicious matter signal change. Diffuse disc desiccation is appreciated throughout the cervical spine with multilevel bilateral laminectomies decompressing the C4, C5 and C6 levels with bilateral laminectomies appreciated these levels. Posterior spinal fusion hardware including bilateral transpedicular screws with interconnecting rods from C3 to C7 once again. Central canal from C3-4 -C6-7 is widely patent without interval stenosis appreciable. No interval disc herniation. Normal cervical cord is identified throughout. No suspicious intrathecal or epidural enhancement. No abscess grossly evident. No suspicious prevertebral or paraspinal soft tissue findings. C2-3: No disc herniation, spinal canal stenosis or neural foraminal narrowing. C3-4: No disc herniation, spinal canal stenosis or severe neural foraminal narrowing. C4-5: No disc herniation, spinal canal stenosis or severe neural foraminal narrowing. C5-C6: No disc herniation, spinal canal stenosis or severe neural foraminal narrowing. C6-C7: No disc herniation, spinal canal stenosis or severe neuroforaminal narrowing. C7-T1: No disc herniation, spinal canal stenosis or severe neural foraminal narrowing. OTHER FINDINGS: Neural foramina are less well evaluated in the current exam than prior CT 2017 due to artifacts related to transpedicular fusion screws from C3-C7 bilaterally. C2-3 neural foramina widely patent IMPRESSION: 1. No suspicious intrathecal or epidural enhancement. No abscess identified. Cervical cord appears normal. 2. Reiteration of prior multilevel decompressive laminectomies at C4, C5 and C6 with bilateral transpedicular screws and interconnecting rods fusing C3 through C7 levels inclusively. No interval spondylolisthesis. No gross disc herniation appreciable. Neural foramina are less well evaluated due to dephasing artifact caused by the screws except for at C2-3. Radiology Orders: 04/23/18 12:29 ABD & PELVIS W/O PO OR IV CONT [CT] Stat 04/23/18 15:05 SPINAL CANAL CERVICAL W/WO HARSH [MRI] Stat SPINAL THORACIC W/WO HARSH [MRI] Stat - Medication Orders Current Medication Orders: Discontinued Medications Diazepam (Valium) 10 mg PO ONCE ONE PRN Reason: Protocol Stop: 04/23/18 11:28 Last Admin: 04/23/18 12:31 Dose: 10 mg Hydromorphone HCl (Dilaudid) 1 mg IVP STAT STA Stop: 04/23/18 12:26 Last Admin: 04/23/18 12:37 Dose: 1 mg MAR Pain Assessment Document 04/23/18 12:37 HI (Rec: 04/23/18 12:37 HI [id number]) Pain Reassessment Is this a pain reassessment? No IVP Administration Document 04/23/18 12:37 HI (Rec: 04/23/18 12:37 HI [id number]) Charges for Administration # of IVP Administrations 2 Re-Assess: [facility] [place] Pain Assessment Document 04/23/18 13:37 HI (Rec: 04/23/18 15:25 HI [id number]) Pain Reassessment Is this a pain reassessment? Yes Sleep Is patient sleeping during reassessment? Yes Hydromorphone HCl (Dilaudid) 1 mg IVP STAT STA Stop: 04/23/18 12:33 Last Admin: 04/23/18 12:39 Dose: 1 mg MAR Pain Assessment Document 04/23/18 12:39 HI (Rec: 04/23/18 12:39 HI [id number]) Pain Reassessment Is this a pain reassessment? No IVP Administration Document 04/23/18 12:39 HI (Rec: 04/23/18 12:39 HI [id number]) Charges for Administration # of IVP Administrations 2 Re-Assess: [facility] [place] Pain Assessment Document 04/23/18 13:39 HI (Rec: 04/23/18 15:25 HI [id number]) Pain Reassessment Is this a pain reassessment? Yes Sleep Is patient sleeping during reassessment? Yes Hydromorphone HCl (Dilaudid) 1 mg IVP STAT STA Stop: 04/23/18 17:40 Sodium Chloride (Sodium Chloride 0.9%) 1,000 mls @ 999 mls/hr IV .Q1H1M STA Stop: 04/23/18 12:27 Last Admin: 04/23/18 12:15 Dose: 999 mls/hr eMAR Start Stop Document 04/23/18 12:15 HI (Rec: 04/23/18 12:33 HI [id number]) Intravenous Solution Start Date 04/23/18 Start Time 12:15 Vancomycin HCl (Vancomycin 1gm) 1 gm in 250 mls @ 167 mls/hr IVPB STAT STA PRN Reason: Protocol Stop: 04/23/18 16:26 Last Admin: 04/23/18 15:13 Dose: 167 mls/hr eMAR Start Stop Document 04/23/18 15:13 HI (Rec: 04/23/18 15:13 HI [id number]) Intravenous Solution Start Date 04/23/18 Start Time 15:13 Aztreonam (Azactam 2 Gm) 100 mls @ 100 mls/hr IVPB STAT STA PRN Reason: Protocol Stop: 04/23/18 16:10 Ketorolac Tromethamine (Toradol) 30 mg IVP STAT STA Stop: 04/23/18 11:28 Last Admin: 04/23/18 12:30 Dose: 30 mg GERALDO Pain Assessment Document 04/23/18 12:30 HI (Rec: 04/23/18 12:30 HI [id number]) Pain Reassessment Is this a pain reassessment? No Sleep Is patient sleeping during reassessment? No Presence of Pain Presence of Pain Yes Pain Scale Used Pain Scale Used Numeric Location Pain Location Body Site Neck Description Description Constant IVP Administration Document 04/23/18 12:30 HI (Rec: 04/23/18 12:30 HI [id number]) Charges for Administration # of IVP Administrations 1 Re-Assess: GERALDO Pain Assessment Document 04/23/18 13:30 HI (Rec: 04/23/18 15:25 HI [id number]) Pain Reassessment Is this a pain reassessment? Yes Sleep Is patient sleeping during reassessment? Yes Ondansetron HCl (Zofran Inj) 4 mg IVP STAT STA Stop: 04/23/18 12:16 Last Admin: 04/23/18 12:30 Dose: 4 mg IVP Administration Document 04/23/18 12:30 NC (Rec: 04/23/18 12:30 NC [id number]) Charges for Administration # of IVP Administrations 1 Disposition/Present on Arrival - Present on Arrival Any Indicators Present on Arrival: No History of DVT/PE: No History of Uncontrolled Diabetes: No Urinary Catheter: No History Surgical Site Infection Following: None - Disposition Have Diagnosis and Disposition been Completed?: Yes Diagnosis: Cervical pain (neck), Drug-seeking behavior Disposition: HOME/ ROUTINE Disposition Time: 18:58 Patient Plan: Discharge Patient Problems: Current Active Problems Problem Status Onset Cervical pain (neck) Acute Drug-seeking behavior Acute Condition: IMPROVED Discharge Instructions (ExitCare): Chronic Neck Pain (DC) Additional Instructions: Call Dr. Nava office tomorrow for revaluation . Also , call Dr. Starkey, neuro surgery in 1-2 days for revaluation. Take medication as instructed with food. Return to emergency if news symptoms develop, fever, or worsening of symptoms. Prescriptions: Famotidine [Pepcid] 40 mg PO DAILY #10 tablet Naproxen 500 mg PO BID PRN #14 tab PRN Reason: Pain, Severe (8-10) Referrals: Candelario Nava MD [Family Provider] - Follow up with primary Rivera Starkey MD [Staff Provider] - Follow up with primary
[2018-04-23] MEDS ORDERED: Sodium Chloride 0.9% 1,000 ML IV STA (11:27)
[2018-04-23 12:10] LABS: BASO # 0.02 K/mm3 (0.0-2.0); BASO % 0.2 % (0.0-3.0); GRAN # 9.32 (1.4-6.5); GRAN % 77.5 % (50.0-68.0); HEMOGLOBIN 14.1 g/dL (12.0-16.0); LYMPH # 2.2 (1.2-3.4); LYMPH % 17.9 % (22.0-35.0); MEAN CELL VOLUME 74.9 fl (80.0-105.0); MEAN CORPUSCULAR HEMOGLOBIN 24.4 pg (25.0-35.0); MEAN CORPUSCULAR HGB CONC 32.6 g/dl (31.0-37.0); MEAN PLATELET VOLUME 9.2 fl (7.0-11.0); MONO # 0.5 (0.1-0.6); MONO % 4.4 % (1.0-6.0); RBC 5.77 10^6/uL (3.5-6.1)
[2018-04-23] MEDS ORDERED: oxyCODONE 30 mg Immediate Release Tab PO STA (12:15)
[2018-04-23 12:19] LABS: ALB/GLOB RATIO 1.3 (1.1-1.8); ALBUMIN 5.1 g/dL (3.0-4.8); ALT/SGPT 46 U/L (7-56); AST/SGOT 31 U/L (14-36); BLOOD UREA NITROGEN 13 mg/dL (7-21); CALCIUM 10.2 mg/dL (8.4-10.5); GFR AFRICAN-AMERICAN > 60; GFR NON-AFRICAN AMERICAN > 60
[2018-04-23] MEDS ORDERED: HYDROmorphone 1 mg/ml ISec IVP STA (12:25)
[2018-04-23] MEDS ORDERED: HYDROmorphone 0.5 mg/0.5 ml ISec IVP STA ×2 (12:32→17:39)
[2018-04-23 12:59] VITALS: O2SAT 99
--- NOTE | 2018-04-23 13:33 | CT ---
PROCEDURE: CT Abdomen and Pelvis without intravenous contrast HISTORY: nausea COMPARISON: None. TECHNIQUE: Without contrast.. Contrast dose: Radiation dose: Total exam DLP = 1578 mGy-cm. This CT exam was performed using one or more of the following dose reduction techniques: Automated exposure control, adjustment of the mA and/or kV according to patient size, and/or use of iterative reconstruction technique. FINDINGS: LOWER THORAX: Unremarkable. LIVER: Unremarkable. No gross lesion or ductal dilatation. GALLBLADDER AND BILE DUCTS: Unremarkable. PANCREAS: Unremarkable. No gross lesion or ductal dilatation. SPLEEN: Unremarkable. ADRENALS: Unremarkable. No mass. KIDNEYS AND URETERS: Unremarkable. No hydronephrosis. No solid mass. VASCULATURE: Unremarkable. No aortic aneurysm. BOWEL: Unremarkable. No obstruction. No gross mural thickening. APPENDIX: Unremarkable. Normal appendix. PERITONEUM: Unremarkable. No free fluid. No free air. LYMPH NODES: Unremarkable. No enlarged lymph nodes. BLADDER: Unremarkable. REPRODUCTIVE: Unremarkable. BONES: No acute fracture. OTHER FINDINGS: None. IMPRESSION: No acute intra-abdominal findings
[2018-04-23] MEDS ORDERED: Vancomycin 1gm in NS 250ml 1 GM/250 ML BAG IVPB STA (14:57)
[2018-04-23] MEDS ORDERED: Aztreonam 2 Gm in NS 100mL 100 ML IVPB STA (15:11)
[2018-04-23 15:26] LABS: INR 1.12 (0.93-1.08); PARTIAL THROMBOPLASTIN TIME 30.6 Seconds (25.1-36.5); PROTHROMBIN TIME 12.8 SECONDS (9.4-12.5)
[2018-04-23] MEDS ORDERED: Gadodiamide 287 MG/ML VIAL (20ML) IV ONE (16:31)
--- NOTE | 2018-04-23 18:17 | MRI ---
PROCEDURE: MR CERVICAL SPINE WITH AND WITHOUT CONTRAST HISTORY: pain r/o abscess COMPARISON: Noncontrast cervical spine CT 04/19/2018. TECHNIQUE: Multiecho multiplanar sequences were performed through the cervical spine with (Omniscan 15 cc) and without the use of intravenous contrast. FINDINGS: Cervical curvature is seen straightened in the interval. No interval spondylolisthesis or suspicious matter signal change. Diffuse disc desiccation is appreciated throughout the cervical spine with multilevel bilateral laminectomies decompressing the C4, C5 and C6 levels with bilateral laminectomies appreciated these levels. Posterior spinal fusion hardware including bilateral transpedicular screws with interconnecting rods from C3 to C7 once again. Central canal from C3-4 -C6-7 is widely patent without interval stenosis appreciable. No interval disc herniation. Normal cervical cord is identified throughout. No suspicious intrathecal or epidural enhancement. No abscess grossly evident. No suspicious prevertebral or paraspinal soft tissue findings. C2-3: No disc herniation, spinal canal stenosis or neural foraminal narrowing. C3-4: No disc herniation, spinal canal stenosis or severe neural foraminal narrowing. C4-5: No disc herniation, spinal canal stenosis or severe neural foraminal narrowing. C5-C6: No disc herniation, spinal canal stenosis or severe neural foraminal narrowing. C6-C7: No disc herniation, spinal canal stenosis or severe neuroforaminal narrowing. C7-T1: No disc herniation, spinal canal stenosis or severe neural foraminal narrowing. OTHER FINDINGS: Neural foramina are less well evaluated in the current exam than prior CT 04/19/2018 due to artifacts related to transpedicular fusion screws from C3-C7 bilaterally. C2-3 neural foramina widely patent IMPRESSION: 1. No suspicious intrathecal or epidural enhancement. No abscess identified. Cervical cord appears normal. 2. Reiteration of prior multilevel decompressive laminectomies at C4, C5 and C6 with bilateral transpedicular screws and interconnecting rods fusing C3 through C7 levels inclusively. No interval spondylolisthesis. No gross disc herniation appreciable. Neural foramina are less well evaluated due to dephasing artifact caused by the screws except for at C2-3.
--- NOTE | 2018-04-23 18:25 | MRI ---
PROCEDURE: MR THORACIC SPINE WITH AND WITHOUT CONTRAST HISTORY: pain r/o abscess COMPARISON: None available. TECHNIQUE: Multiecho multiplanar sequences were performed through the thoracic spine with (Omniscan 15 cc, 1 dose given for both cervical as well as thoracic spine MR imaging) and without the use of intravenous contrast. FINDINGS: ALIGNMENT: There is mild straightening of the thoracic curvature. No fracture or spondylolisthesis identified. VERTEBRA: Vertebral body height are preserved. MARROW: Marrow signal unremarkable. PARASPINAL SOFT TISSUES: Unremarkable. CORD: Unremarkable thoracic cord. No volume loss, signal abnormality or syrinx. The conus medullaris disc not completely captured in this examination but likely terminates at the upper lumbar spine. DISCS: No disc herniation, spinal canal stenosis, or neuroforaminal narrowing. ENHANCEMENT: No abnormal enhancement. OTHER FINDINGS: None. IMPRESSION: Other than straightening of the thoracic curvature. No additional abnormality is appreciated throughout the thoracic spine. No abnormal intrathecal or epidural enhancement. No disc herniation, central canal or neural foraminal stenosis grossly evident.
[2018-04-23 19:22] VITALS: BP 135/82; PULSE 75; TEMP 98.9
== END 2018-04-23 19:20 | disposition home or self-care (01) ==
LOC: ED 10:21
DX: M54.2 Cervicalgia (principal); Z76.5 Malingerer [conscious simulation]; H54.8 Legal blindness, as defined in USA
CPT/HCPCS: 72156; 72157; 74176; 80053; 84703; 85025; 85610; 85651; 85730; 87040; 96374; 96375; 99282; A9579; J1170; J1885; J2405; J7030

== ENCOUNTER 2018-06-19 02:26 | Observation (INO) | payer BC ==
[2018-06-19] MEDS ORDERED: Morphine 4 mg/ml ISec IVP STA ×2 (02:49→03:48)
--- NOTE | 2018-06-19 02:53 | ED PDOC ---
Arrival/HPI <Elder Bartholomew - Last Filed: 06/19/18 03:56> - General Historian: Patient, Family - History of Present Illness Time/Duration: 4-6 hours Symptom Onset: Sudden Symptom Course: Unchanged, Worsening Quality: Pressure, Tightness Severity Level: 9 Activities at Onset: Rest Context: Exertion <Jaron Nick - Last Filed: 06/19/18 04:06> - General Chief Complaint: Chest Pain Time Seen by Provider: 06/19/18 02:28 - History of Present Illness Narrative History of Present Illness (Text): 06/19/18 02:50 Patient is a 33 year old female with PMH of cervical disc bulging, HTN, albinism , and opioid dependence who presents to ED with chest pain that started 5 hours ago. She describes the chest pain as a pressure like sensation that radiates to her left side. She states that she has also been having neck pain and left sided weakness which are chronic issues but seem to be worse since the chest pain started. She also admits to dyspnea on exertion, nausea, and vomiting x 2. She states that she has felt nauseous for the past three days and has not been able to take her usual prescribed oxycodone. She denies fever, chills, palpitations, diarrhea, constipation, peripheral numbness/tingling or other symptoms. (Jaron Nick) Past Medical History - Provider Review Nursing Documentation Reviewed: Yes - Travel History Have you recently traveled outside [place] w/in the past 3 mons?: No - Past History Past History: Non-Contributing - Infectious Disease Hx of Infectious Diseases: None - Tetanus Immunization Tetanus Immunization: Unknown - Cardiac Hx Cardiac Disorders: No - Pulmonary Hx Respiratory Disorders: No - Neurological Hx Neurological Disorder: No Other/Comment: DX OF BRAIN TUMOR AUG 2016 - HEENT Hx HEENT Disorder: Yes Hx Blind: Yes (legally) - Renal Hx Renal Disorder: No - Endocrine/Metabolic Hx Endocrine Disorders: No - Hematological/Oncological Hx Blood Disorders: No - Integumentary Hx Dermatological Disorder: No - Musculoskeletal/Rheumatological Hx Falls: No - Gastrointestinal Hx Gastrointestinal Disorders: No - Genitourinary/Gynecological Hx Genitourinary Disorders: No Other/Comment: ovarian cyst - Psychiatric Hx Anxiety: Yes Hx Depression: Yes Hx Substance Use: No - Surgical History Other/Comment: GASTRIC LAP BAND PLACEMENT AND REMOVAL 2014 .REMOVAL FIBROID AUG 2016 - Anesthesia Hx Anesthesia: Yes Hx Anesthesia Reactions: No Hx Malignant Hyperthermia: No <Jaron Nick - Last Filed: 06/19/18 04:06> Family/Social History - Physician Review Nursing Documentation Reviewed: Yes Family/Social History: Diabetes (father), Other (father has CHF ) Smoking Status: Never Smoked Hx Alcohol Use: No Hx Substance Use: No Hx Substance Use Treatment: No <NickJaron - Last Filed: 06/19/18 04:06> Allergies/Home Meds <Elder Bartholomew - Last Filed: 06/19/18 03:56> <NickJaron - Last Filed: 06/19/18 04:06> Allergies/Adverse Reactions: Allergies Penicillins Allergy (Verified 05/19/18 07:23) ANAPHYLAXIS Home Medications: Home Meds Medication Instructions Recorded Confirmed Fluoxetine HCl [Prozac] 40 mg PO DAILY 05/19/18 06/19/18 Zolpidem [Ambien] 10 mg PO HS 05/19/18 06/19/18 buPROPion XL [Wellbutrin XL] 150 mg PO DAILY 05/19/18 06/19/18 Metoprolol Tartrate [Lopressor] 75 mg PO BID 06/19/18 06/19/18 oxyCODONE [oxyCODONE Immediate 20 mg PO Q4 06/19/18 06/19/18 Release Tab] oxyCODONE [oxyCONTIN Extended 60 mg PO Q12 06/19/18 06/19/18 Release Tab] Review of Systems - Physician Review All systems were reviewed & negative as marked: Yes - Review of Systems Constitutional: Fatigue. absent: Fevers, Night Sweats Eyes: absent: Vision Changes ENT: absent: Sore Throat, Rhinorrhea Respiratory: SOB. absent: Cough, Sputum, Wheezing Cardiovascular: Chest Pain. absent: Palpitations, Edema Gastrointestinal: Abdominal Pain, Nausea, Vomiting. absent: Stool Changes, Constipation, Diarrhea Genitourinary Female: absent: Dysuria, Frequency Musculoskeletal: Neck Pain. absent: Arthralgias Skin: absent: Rash, Pruritis Neurological: absent: Headache Endocrine: Diaphoresis Hemo/Lymphatic: absent: Adenopathy Psychiatric: absent: Anxiety, Depression <Jaron Nick - Last Filed: 06/19/18 04:06> Physical Exam Vital Signs Reviewed: Yes Temperature: Afebrile Blood Pressure: Normal Pulse: Regular Respiratory Rate: Normal Appearance: Positive for: Ill-Appearing, Uncomfortable Pain Distress: Mild Mental Status: Positive for: Alert and Oriented X 3 - Systems Exam Head: Present: Atraumatic, Normocephalic Pupils: Present: PERRL Extroacular Muscles: Present: EOMI Conjunctiva: Present: Normal Ears: Present: Normal Mouth: Present: Moist Mucous Membranes Pharnyx: Present: Normal. No: ERYTHEMA, EXUDATE Nose (External): Present: Atraumatic Neck: Present: Normal Range of Motion, Paraspinal Tenderness. No: Meningeal Signs, JVD Respiratory/Chest: Present: Clear to Auscultation. No: Wheezes, Rales, Rhonchi Cardiovascular: Present: Regular Rate and Rhythm, Normal S1, S2. No: Murmurs, Rub, Gallop Abdomen: No: Tenderness, Rebound, Guarding Upper Extremity: Present: Normal Inspection. No: Cyanosis, Edema Lower Extremity: Present: Normal Inspection. No: Edema Neurological: Present: Speech Normal Skin: Present: Warm, Dry, Other (livedo reticularis, skin consistent with albinism) Psychiatric: Present: Alert, Oriented x 3 <Jaron Nick - Last Filed: 06/19/18 04:06> Vital Signs Temp Pulse Resp BP Pulse Ox 06/19/18 02:49 98.4 F 75 18 115/79 99 Medical Decision Making <Elder Bartholomew - Last Filed: 06/19/18 03:56> - Lab Interpretations I have reviewed the lab results: Yes Interpretation: Abnormal lab values (consistent with UTI) - RAD Interpretation Manual Lathe Machinist: ED Physician - EKG Interpretation Interpreted by ED Physician: Yes Type: 12 lead EKG Comparison: No previous EKG avail. <Jaron Nick - Last Filed: 06/19/18 04:06> ED Course and Treatment: Patient Seen With Resident: In agreement with resident note which contains more details about the patient. Patient was seen and evaluated with resident. Came up with plan and treatment together. 33 year old female presents complaining of chest pain that radiates to the left that began 5 hours ago. Plan: -- EKG -- Labs -- Chest X-ray -- Aspirin, Macrobid, Morphine, Tylenol, Zofran -- Urine Culture Urinalysis w/ micro -- Reassess and disposition (Elder Bartholomew) 06/19/18 02:55 -Patient with new onset chest pain radiating to left arm -EKG with some T wave changes -Will get cardiac iso, CBC, CMP, UA, CXR -One time dose of morphine 4 mg IVP for pain -ASA 325 mg ordered, zofran 4 mg IVP for nausea 06/19/18 03:27 -Initial troponin negative -Patient reports pain and nausea have improved s/p morphine and zofran -Patient found to have UTI, she is currently asymptomatic -1 L NS bolus given in ED 06/19/18 03:42 -Spoke with Dr. Nava who agrees to admission -Macrobid 100 mg Q12h ordered for UTI -Second dose of morphine 4 mg IVP for pain given in ED (Jaron Nick) - Lab Interpretations Lab Results: 06/19/18 02:53 06/19/18 02:53 Lab Results 06/19/18 03:16: POC Glucose (mg/dL) 129 H 06/19/18 03:00: Urine Color Yellow, Urine Appearance Sl cloudy, Urine pH 6.5, Ur Specific [place] 1.025, Urine Protein 100 H, Urine Glucose (UA) Negative, Urine Ketones Trace H, Urine Blood Negative, Urine Nitrate Negative, Urine Bilirubin Negative, Urine Urobilinogen 0.2, Ur Leukocyte Esterase Moderate H, Urine RBC 0 - 2, Urine WBC 10 - 15, Ur Epithelial Cells 1 - 3, Urine Bacteria Small 06/19/18 02:53: Sodium 142, Potassium 4.1, Chloride 101, Carbon Dioxide 25, Anion Gap 20, BUN 15, Creatinine 0.9, Est GFR ( Amer) > 60, Est GFR (Non- Af Amer) > 60, Random Glucose 151 H, Calcium 10.7 H, Total Bilirubin 0.7, AST 27 , ALT 47, Alkaline Phosphatase 148 H D, Lactate Dehydrogenase 399, Total Creatine Kinase 73, Troponin I < 0.01, Total Protein 9.1 H, Albumin 5.1 H, Globulin 4.1, Albumin/Globulin Ratio 1.2 06/19/18 02:53: WBC 15.2 H D, RBC 6.05, Hgb 15.0, Hct 45.0, MCV 74.4 L, MCH 24.8 L, MCHC 33.3, RDW 16.1 H, Plt Count 461 H, MPV 9.5, Gran % 79.1 H, Lymph % (Auto) 15.4 L, [place] % (Auto) 5.3, Eos % (Auto) 0.1 L, Baso % (Auto) 0.1, Gran # 12.04 H, Lymph # (Auto) 2.3, [place] # (Auto) 0.8 H, Eos # (Auto) 0.0, Baso # (Auto ) 0.02 06/19/18 02:53: PT 13.0 H, INR 1.14, APTT 29.7 - RAD Interpretation Narrative RAD Interpretations (Text): 06/19/18 04:05 CXR without acute findings (Jaron Nick) Radiology Orders: 06/19/18 02:48 CHEST PORTABLE [RAD] Stat - EKG Interpretation EKG Interpretation (Text): 06/19/18 03:44 Prolonged QT, T wave changes in V5-V6, normal sinus rhythm (Jaron Nick) - Medication Orders Current Medication Orders: Acetaminophen (Tylenol 325mg Tab) 650 mg PO Q4H PRN PRN Reason: Pain, Mild (1-3) Sodium Chloride (Sodium Chloride 0.9%) 1,000 mls @ 999 mls/hr IV .Q1H1M STA Stop: 06/19/18 04:31 Last Admin: 06/19/18 03:39 Dose: 999 mls/hr eMAR Start Stop Document 06/19/18 03:39 AD (Rec: 06/19/18 03:39 AD [id number]) Intravenous Solution Start Date 06/19/18 Start Time 03:39 Nitrofurantoin Macrocrystals (Macrobid) 100 mg PO Q12H RANJAN PRN Reason: Protocol Discontinued Medications Aspirin (Aspirin) 325 mg PO STAT STA Stop: 06/19/18 03:05 Last Admin: 06/19/18 03:10 Dose: 325 mg Morphine Sulfate (Morphine) 4 mg IVP STAT STA Stop: 06/19/18 02:50 Last Admin: 06/19/18 03:10 Dose: 4 mg MAR Pain Assessment Document 06/19/18 03:10 AD (Rec: 06/19/18 03:17 AD [id number]) Pain Reassessment Is this a pain reassessment? No Presence of Pain Presence of Pain Yes Pain Scale Used Pain Scale Used Numeric Description Intensity of Pain at present 8 Pain Behavior Facial Grimacing IVP Administration Document 06/19/18 03:10 AD (Rec: 06/19/18 03:17 AD [id number]) Charges for Administration # of IVP Administrations 1 Morphine Sulfate (Morphine) 4 mg IVP STAT STA Stop: 06/19/18 03:49 Last Admin: 06/19/18 03:53 Dose: 4 mg MAR Pain Assessment Document 06/19/18 03:53 AD (Rec: 06/19/18 03:55 AD [id number]) Pain Reassessment Is this a pain reassessment? No Description Intensity of Pain at present 8 Pain Behavior Facial Grimacing IVP Administration Document 06/19/18 03:53 AD (Rec: 06/19/18 03:55 AD [id number]) Charges for Administration # of IVP Administrations 1 Ondansetron HCl (Zofran Inj) 4 mg IVP STAT STA Stop: 06/19/18 03:03 Last Admin: 06/19/18 03:10 Dose: 4 mg IVP Administration Document 06/19/18 03:10 AD (Rec: 06/19/18 03:17 AD [id number]) Charges for Administration # of IVP Administrations 1 - PA / HAIR SPINNER / Resident Statement MD/DO has reviewed & agrees with the documentation as recorded. MD/ has examined the patient and agrees with the treatment plan. - Scribe Statement The provider has reviewed the documentation as recorded by the Scribe <Elder Bartholomew - Last Filed: 06/19/18 03:56> <Jaron Nick - Last Filed: 06/19/18 04:06> - Scribe Statement Rolanda Hutchison Provider Scribe Attestation: All medical record entries made by the Scribe were at my direction and personally dictated by me. I have reviewed the chart and agree that the record accurately reflects my personal performance of the history, physical exam, medical decision making, and the department course for this patient. I have also personally directed, reviewed, and agree with the discharge instructions and disposition. (Elder Bartholomew) Disposition/Present on Arrival <Elder Bartholomew - Last Filed: 06/19/18 03:56> - Present on Arrival Any Indicators Present on Arrival: No History of DVT/PE: No History of Uncontrolled Diabetes: No Urinary Catheter: No History of Decub. Ulcer: No History Surgical Site Infection Following: None - Disposition Have Diagnosis and Disposition been Completed?: Yes Disposition Time: 03:44 Patient Plan: Admission, Telemetry <Jaron Nick - Last Filed: 06/19/18 04:06> - Disposition Diagnosis: Chest pain, Abnormal EKG Disposition: HOSPITALIZED Patient Problems: Current Active Problems Problem Status Onset Chest pain Acute Abnormal EKG Acute Condition: FAIR Discharge Instructions (ExitCare): Chest Pain (ED) Forms: [facility] (Yakut)
[2018-06-19 03:08] LABS: BASO # 0.02 K/mm3 (0.0-2.0); BASO % 0.1 % (0.0-3.0); EOS % 0.1 % (1.5-5.0); GRAN # 12.04 (1.4-6.5); GRAN % 79.1 % (50.0-68.0); LYMPH # 2.3 (1.2-3.4); LYMPH % 15.4 % (22.0-35.0); MEAN CELL VOLUME 74.4 fl (80.0-105.0); MEAN CORPUSCULAR HEMOGLOBIN 24.8 pg (25.0-35.0); MEAN CORPUSCULAR HGB CONC 33.3 g/dl (31.0-37.0); MEAN PLATELET VOLUME 9.5 fl (7.0-11.0); MONO # 0.8 (0.1-0.6); MONO % 5.3 % (1.0-6.0); RBC 6.05 10^6/uL (3.5-6.1); RED CELL DISTRIBUTION WIDTH 16.1 % (11.5-14.5); WHITE BLOOD COUNT 15.2 10^3/ul (4.5-11.0)
[2018-06-19 03:11] LABS: INR 1.14; PARTIAL THROMBOPLASTIN TIME 29.7 Seconds (25.1-36.5)
[2018-06-19 03:12] LABS: ALB/GLOB RATIO 1.2 (1.1-1.8); ALBUMIN 5.1 g/dL (3.0-4.8); ALT/SGPT 47 U/L (7-56); AST/SGOT 27 U/L (14-36); BLOOD UREA NITROGEN 15 mg/dL (7-21); CALCIUM 10.7 mg/dL (8.4-10.5); GFR AFRICAN-AMERICAN > 60; GFR NON-AFRICAN AMERICAN > 60
[2018-06-19 03:22] LABS: PH,URINE 6.5 (4.7-8.0); URINE APPEARANCE SL CLOUDY (CLEAR); URINE BILIRUBIN NEGATIVE (NEGATIVE); URINE BLOOD NEGATIVE (NEGATIVE); URINE COLOR YELLOW (YELLOW); URINE GLUCOSE (UA) NEGATIVE (NEGATIVE); URINE LEUKOCYTE ESTERASE MODERATE Leu/uL (NEGATIVE); URINE PROTEIN 100 mg/dL (<30 mg/dL); URINE UROBILINOGEN 0.2 E.U./dL (<1 E.U./dL)
[2018-06-19 03:23] LABS: TROPONIN I < 0.01 ng/mL
[2018-06-19 03:31] LABS: URINE BACTERIA SMALL (NEG); URINE RBC 0 - 2 /hpf (0-2)
[2018-06-19] MEDS ORDERED: Sodium Chloride 0.9% 1,000 ML IV STA (03:31)
[2018-06-19] MEDS ORDERED: oxyCODONE 10 mg Immediate Release Tab PO STA (06:03)
[2018-06-19 06:27] VITALS: BMI 44.1
[2018-06-19] MEDS ORDERED: oxyCODONE 10 mg Immediate Release Tab PO SCH (08:00)
[2018-06-19 08:04] LABS: HDL CHOLESTEROL 63 mg/dL (29-60)
[2018-06-19 08:16] LABS: LDL CHOLESTEROL 107 mg/dL (0-129)
[2018-06-19 08:17] LABS: TROPONIN I < 0.01 ng/mL
--- NOTE | 2018-06-19 09:55 | CARD ---
APPROVED REPORT Date of service: 06/19/2018 EKG Measurement Heart [id number] MA 132P25 [id number] <Conclusion> Normal sinus rhythm Minimal voltage criteria for LVH, may be normal variant T wave abnormality, consider anterolateral ischemia Prolonged QT Abnormal ECG
[2018-06-19 09:56] LABS: BENZODIAZEPINES, UR NEGATIVE (NEGATIVE)
--- NOTE | 2018-06-19 09:56 | CARD ---
APPROVED REPORT Date of service: 06/19/2018 EKG Measurement Heart [id number] FL 130P24 [id number] <Conclusion> Normal sinus rhythm T wave abnormality, consider inferior ischemia T wave abnormality, consider anterolateral ischemia Prolonged QT Abnormal ECG
[2018-06-19 10:18] LABS: BARBITURATES, UR NEGATIVE (NEGATIVE); PHENCYCLIDINE, UR NEGATIVE (NEGATIVE)
[2018-06-19 10:26] LABS: OPIATES, UR POSITIVE (NEGATIVE)
[2018-06-19] MEDS: oxyCODONE 20 mg Immediate Release Tab PO PRN ×4 (10:58→21:52)
--- NOTE | 2018-06-19 12:26 | RAD ---
Date of service: 06/19/2018 HISTORY: CP COMPARISON: No prior. FINDINGS: LUNGS: No active pulmonary disease. PLEURA: No significant pleural effusion identified, no pneumothorax apparent. CARDIOVASCULAR: No radiographic findings to suggest acute or significant cardiovascular disease. OSSEOUS STRUCTURES: No significant abnormalities. VISUALIZED UPPER ABDOMEN: Normal. OTHER FINDINGS: Cervical fixation rods identified. IMPRESSION: No active disease.
[2018-06-19] MEDS: buPROPion 150 mg/24 Hours XL Tab PO SCH (13:58)
--- NOTE | 2018-06-19 14:37 | CON ---
Copied To: Rambo Rodriguez MD Attending MD: Rambo Rodriguez MD DATE: 06/19/2018 REASON FOR THE CONSULTATION: Cardiac evaluation and chest pain. BRIEF CLINICAL HISTORY: This is a 33-year-old female with past medical history significant for hypertension, recently diagnosed a week ago, history of hyperlipidemia, diagnosed 1 month ago, history of cervical bulging disk, status post surgery of the neck, opioid dependent, takes oxycodone and OxyContin 6 tablets both in a day. Came in with complaint of the chest pain, retrosternal, tender and increases when taking a deep breath and feels radiating to the back. Also, complained of dyspnea on exertion. The patient is morbidly obese. History of also depression, on Wellbutrin and Prozac. PAST MEDICAL HISTORY: Significant for as mentioned, hypertension diagnosed a month ago; history of hyperlipidemia, started 1 month ago atorvastatin; history of depression 5 years ago or longer than that; history of cervical disc surgery in the past, on multiple opioid medications, OxyContin and oxycodone 6 tablets everyday. PAST SURGICAL HISTORY: History of cervical disc surgery. No history of trauma. CURRENT MEDICATIONS: The patient is taking atorvastatin 10 mg daily, Prozac 40 mg daily, Ambien 10 mg daily, Wellbutrin XL 150 mg daily, oxycodone immediate release 20 mg every 4, OxyContin extended release 60 mg every 12, metoprolol tartrate 75 mg p.o. b.i.d. ALLERGY: TO PENICILLIN. REVIEW OF SYSTEMS: As per HPI. PHYSICAL EXAMINATION: VITAL SIGNS: Height of the patient is 5 feet 2 inches, weight of the patient 249, body mass index 44 kg/m2. Rest of the examination as follows. Temperature afebrile, heart rate 54, blood pressure 146/61. HEENT: PERRLA. Extraocular muscles intact. NECK: Supple. No carotid bruits or thyromegaly. CHEST: Clear to auscultation. HEART: S1 and S2 regular. ABDOMEN: Soft. EXTREMITIES: Clubbing and cyanosis negative. LABORATORY DATA: Blood workup as follows; WBC 15.8, hemoglobin 15, hematocrit 45, platelet count 461. INR 1.14. Chemistry shows sodium 140, potassium , chloride 101, carbon dioxide 25, anion gap of 20, BUN 15, creatinine 0.5. Troponin 0.01. EKG shows normal sinus. T inversion in the anterior lead. IMPRESSION: Atypical chest pain, tenderness of muscles, opioid dependence, morbid obesity, body mass index 44.1 kg/m2, prediabetic or diabetic, depression, multiple opioid dependence. RECOMMENDATIONS: We will get lipid profile, TSH, hemoglobin A1c, echo to assess LV function because there are multiple comorbidities as well as abnormal EKG. We will do a stress test. Further recommendations after the stress test. We will follow with you. Though the current chest pain is atypical, we will also add nonsteroidal antiinflammatory, but given the multiple risk factors, for risk stratification we will do the stress test. We will get urine for beta-hCG for test. We will keep n.p.o. after midnight for a stress test in the morning. We will give baby aspirin 81 mg daily. Thank you, Dr. Nava, for providing us the opportunity in taking care of the patient, Erica Orozco. Rambo Rodriguez MD
--- NOTE | 2018-06-19 17:36 | CARD ---
APPROVED REPORT Date of service: 06/19/2018 EXAM: Two-dimensional and M-mode echocardiogram with Doppler and color Doppler. INDICATION CP 2D DIMENSIONS Left Atrium (2D)2.8 (1.6-4.0cm)IVSd1.3 (0.7-1.1cm) LVDd3.7 (3.9-5.9cm)PWd1.3 (0.7-1.1cm) LVDs2.5 (2.5-4.0cm)FS (%) 31.6 % LVEF (%)60.4 (>50%) M-Mode DIMENSIONS Aortic Root2.90 (2.2-3.7cm)Aortic Cusp Exc.1.90 (1.5-2.0cm) Aortic Valve AoV Peak Xkbscfoq653.0cm/Mia Peak GR.12mmHg Mitral Valve MV E Seevcqti11.0cm/sMV A Mdrlexbe40.8cm/sE/A ratio1.4 TDI Lateral E' Peak V9.65cm/sMedial E' Peak V8.87cm/sE/Lateral E'8.1 E/Medial E'8.8 Tricuspid Valve TR Peak Debkqeob817hf/sRAP JYYFMEHA16ylIoLY Peak Gr.23mmHg [id number] LEFT VENTRICLE The left ventricle is normal size. There is mild concentric left ventricular hypertrophy. The left ventricular function is normal.EF-60-65% There is normal LV segmental wall motion. The left ventricular diastolic function is normal. No left ventricle thrombus noted on this study. There is no ventricular septal defect visualized. There is no left ventricular aneurysm. RIGHT VENTRICLE The right ventricle is normal size. There is normal right ventricular wall thickness. The right ventricular systolic function is normal. ATRIA The left atrium size is normal. The right atrium size is normal. The interatrial septum is intact with no evidence for an atrial septal defect. AORTIC VALVE The aortic valve is not well visualized. No aortic regurgitation is present. There is no aortic valvular stenosis. There is no aortic valvular vegetation. MITRAL VALVE The mitral valve is thickened but opens well. Mitral regurgitation is trace. There is no mitral valve stenosis. There is no evidence of mitral valve prolapse. TRICUSPID VALVE The tricuspid valve leaflets are thickened , but open well. There is trace tricuspid regurgitation.RVSP-33 mmof hg. There is no tricuspid valve stenosis. There is no tricuspid valve prolapse or vegetation. PULMONIC VALVE The pulmonary valve is normal in structure. There is no pulmonic valvular regurgitation. There is no pulmonic valvular stenosis. GREAT VESSELS The aortic root is normal in size. The ascending aorta is normal in size. The pulmonary artery is normal. The IVC is normal in size and collapses >50% with inspiration. PERICARDIAL EFFUSION There is no pleural effusion. There is no pericardial effusion. <Conclusion> Normal chamber Size. EF-60-65% Mitral regurgitation is trace. There is trace tricuspid regurgitation.RVSP-33 mmof hg. The IVC is normal in size and collapses >50% with inspiration. There is no pericardial effusion.
[2018-06-20] MEDS: oxyCODONE 20 mg Immediate Release Tab PO PRN ×4 (02:00→14:10)
[2018-06-20 06:56] LABS: BASO # 0.02 K/mm3 (0.0-2.0); BASO % 0.2 % (0.0-3.0); EOS % 0.2 % (1.5-5.0); GRAN # 6.63 (1.4-6.5); LYMPH # 2.4 (1.2-3.4); LYMPH % 24.6 % (22.0-35.0); MEAN CELL VOLUME 76.1 fl (80.0-105.0); MEAN CORPUSCULAR HEMOGLOBIN 23.7 pg (25.0-35.0); MEAN CORPUSCULAR HGB CONC 31.1 g/dl (31.0-37.0); MEAN PLATELET VOLUME 9.5 fl (7.0-11.0); MONO # 0.7 (0.1-0.6); RBC 5.32 10^6/uL (3.5-6.1); RED CELL DISTRIBUTION WIDTH 16.5 % (11.5-14.5); WHITE BLOOD COUNT 9.8 10^3/ul (4.5-11.0)
[2018-06-20 07:12] LABS: HEMOGLOBIN 12.6 g/dL (12.0-16.0)
[2018-06-20 07:15] LABS: ALB/GLOB RATIO 1.3 (1.1-1.8); ALBUMIN 4.5 g/dL (3.0-4.8); ALT/SGPT 39 U/L (7-56); AST/SGOT 18 U/L (14-36); BLOOD UREA NITROGEN 16 mg/dL (7-21); CALCIUM 9.5 mg/dL (8.4-10.5); GFR AFRICAN-AMERICAN > 60; GFR NON-AFRICAN AMERICAN 57
--- NOTE | 2018-06-20 07:32 | CP.PCM.PN ---
Subjective - Date & Time of Evaluation Date of Evaluation: 06/20/18 Time of Evaluation: 06:35 - Subjective Subjective: Awake,no distress, mild chest pressure Reason for consultation and follow up: Cardiac evaluation of chest pain, History of cervical disk bulging,hypertension, opiod dependence, morbidly obese , anxiety,depression Seen and examined by me and Dr. Rodriguez Objective - Vital Signs/Intake and Output Vital Signs (last 24 hours): Temp Pulse Resp BP Pulse Ox 98 F 78 22 131/92 H 97 06/20/18 06:00 06/20/18 06:00 06/20/18 06:00 06/20/18 06:00 06/20/18 06:00 Intake and Output: 06/20/18 06/20/18 06:59 18:59 Intake Total 360 Output Total 900 Balance -540 - Medications Medications: Current Medications Acetaminophen (Tylenol 325mg Tab) 650 mg PO Q4H PRN PRN Reason: Pain, Mild (1-3) Aspirin (Aspirin Chewable) 81 mg PO DAILY [facility] Last Admin: 06/19/18 10:10 Dose: 81 mg Atorvastatin Calcium (Lipitor) 10 mg PO DIN [facility] Last Admin: 06/19/18 17:12 Dose: 10 mg Bupropion HCl (Wellbutrin Xl) 150 mg PO DAILY [facility] Last Admin: 06/19/18 13:58 Dose: 150 mg Fluoxetine HCl (Prozac) 40 mg PO DAILY [facility] Last Admin: 06/19/18 13:58 Dose: 40 mg Metoprolol Tartrate (Lopressor) 75 mg PO BID [facility] Last Admin: 06/19/18 17:12 Dose: 75 mg Nitrofurantoin Macrocrystals (Macrobid) 100 mg PO Q12H [facility] PRN Reason: Protocol Last Admin: 06/20/18 04:30 Dose: 100 mg Oxycodone HCl (Oxycodone Immediate Release Tab) 20 mg PO Q4 PRN PRN Reason: Pain, moderate (4-7) Last Admin: 06/20/18 05:51 Dose: 20 mg Zolpidem Tartrate (Ambien) 10 mg PO HS [facility] PRN Reason: Protocol Last Admin: 06/19/18 21:51 Dose: 10 mg - Labs Labs: 06/20/18 06:00 06/20/18 06:00 PT 13.0 SECONDS (9.4-12.5) H 08/15/18 02:53 INR 1.14 06/19/18 02:53 APTT 29.7 Seconds (25.1-36.5) 06/19/18 02:53 - Constitutional Appears: No Acute Distress - Eye Exam Eye Exam: Normal appearance - ENT Exam ENT Exam: Mucous Membranes Moist - Respiratory Exam Respiratory Exam: Decreased Breath Sounds, Clear to Ausculation Bilateral, NORMAL BREATHING PATTERN - Cardiovascular Exam Cardiovascular Exam: REGULAR RHYTHM, +S1, +S2 - GI/Abdominal Exam GI & Abdominal Exam: Soft, Normal Bowel Sounds - Extremities Exam Additional comments: 1+edema - Neurological Exam Neurological Exam: Alert, Awake, Oriented x3 - Psychiatric Exam Psychiatric exam: Normal Affect - Skin Skin Exam: Intact, Warm Assessment and Plan - Assessment and Plan (Free Text) Assessment: A 33 year old female who came in to the ER due to pressure like chest pain midsternum radiating to left side of body. Also complaints of neck pain and chronic left side weakness. History of cervical disk bulging,hypertension, opiod dependence, morbidly obese, anxiety,depression on prozac and Wellbutrin, ovarian cyst,gastric lap band placement and removal 2014. diagnosed with brain tumor 2015. With this admission positive for urinary tract infection. Plan: For stress test today Atypical chest pain Echo showed LVEF 65% ,trace MR/TR, no pericardial effusion Troponin normal Negative test On ASA 81 mg daily,Lipitor 10 mg daily,Lopressor 75 mg BID, Oxycodone for pain Controlled heart rate and blood pressure On Macrobid for UTI Continue current treatment Continue current medications Will follow up Plan and treatment discussed with Dr. Rodriguez
[2018-06-20] MEDS: buPROPion 150 mg/24 Hours XL Tab PO SCH (14:09)
[2018-06-20] MEDS ORDERED: Alum-Mag Hydrox-Simethicone Susp (30 mL) PO ONE (16:47)
[2018-06-20 17:13] VITALS: BP 157/102
[2018-06-20 18:21] VITALS: RESP 20; TEMP 99; O2SAT 98
[2018-06-20 20:50] VITALS: PULSE 89
--- NOTE | 2018-06-20 22:15 | CARD ---
APPROVED REPORT Date of service: 06/20/2018 Protocol: LEXISCAN Test Type: Lexiscan Sestamibi Stress Test Attending Physician: Dr. Rambo Rodriguez Referring Physician: Dr. Tino Nava Test Indications: Chest Pain Height:5 ft 2 in Weight:261lbs Medications: tylenol, aspirin, lipitor, wellbutrin, prozac, lopressor, macrobid, oxycodone, ambien Medical History: 33 year old female with a h/o back surgery, depression and anxiety Target HR: 186 bpm Resting ECG: NSR and T inversion in II,III, Avf, and V3-6 Resting Heart Rate: 82 bpm Resting Blood Pressure: 120/90mmHg Submaximum (85%): 158 bpm PROCEDURE Pharmacologic stress testing was performed using 0.4mg per 5ml of regadenoson given intravenously over 7-10 seconds. Reversal agent aminophyline 100 mg, given intravenously for Dyspnea. POST EXERCISE Reason for Termination: Protocol completed Target HR: No Max HR: 125 bpm 67% of Maximum Predicted HR: 186 bpm Exercise duration: 01:15 min:sec, 0 Stage Exercise capacity: 1.0METs Max Blood Pressure: 120/90mmHg Blood Pressure response to exercise: normal resting BP - appropriate response Heart Rate response to exercise: appropriate Chest Pain: No, none Angina index: 0 Arrhythmia: No, none ST Change: Yes, More pronounced in V5-6 than base line T inversion Deviation: 0 mm INTERPRETATION Stress EKG Conclusion: Non diagnostic IV Lexiscan for Ischemia B/c of abnormal base line ECG,no complains of chest pain, Nuclear scan to follow. Signed by Rambo Rodriguez Electronically Approved: 06/20/2018 12:51:13 EXAM: Myocardial Perfusion REST/STRESS Stress Test Type: Exercise Treadmill Imaging Protocol Rest Spect myocardial perfusion imaging was performed in supine position 45 minutes following the injection of 10.3 mCi of Tc-99 Myoview. At peak stress, the patient was injected intravenously with 30.2mCi of Tc-99 tetrofosmin after an infusion time of 0 minutes and 10 seconds. Gated Stress Spect was performed 75 minutes after intravenous Tc-99 Myoview injection. The images were gated to evaluate regional wall motion and calculate ventricular ejection fraction.Images were reconstructed using backfilter projection method in short horizontal and verticle long axis. Spect slices were generated. LV Perfusion The quality of the study is good. The left ventricle is normal in size. The right ventricle is unremarkable. The lung uptake is normal. The distribution of tracer reveals a small area of mildly decreased perfusion involving distal anteroseptal wall on the stress study. The remainder of the LV myocardium is unremarkable. The rest myocardial perfusion study shows no significant change. Wall Motion Wall motion study shows good contractility of the left ventricle. LVEF = 77%. Conclusion 1. Essentially normal SPECT myocardial perfusion study. 2. Fixed, mild, distal anteroseptal defect is most likely due to breast attenuation. 3. Normal gated wall motion of the left ventricle.
== END 2018-06-20 21:15 | disposition home or self-care (01) ==
LOC: ED 02:26 → ERH 03:42 → 2RSO 05:01
PROVIDERS: ADMIT Internal Medicine; ATTEND Internal Medicine
DX: R07.89 Other chest pain (principal); N39.0 Urinary tract infection, site not specified; I10 Essential (primary) hypertension; E11.9 Type 2 diabetes mellitus without complications; F32.9 Major depressive disorder, single episode, unspecified; F11.20 Opioid dependence, uncomplicated; E78.5 Hyperlipidemia, unspecified; H54.7 Unspecified visual loss; E70.30 Albinism, unspecified; R94.31 Abnormal electrocardiogram [ECG] [EKG]; E66.01 Morbid (severe) obesity due to excess calories; Z68.41 Body mass index [BMI] 40.0-44.9, adult
CPT/HCPCS: 36415; 71045; 78452; 80053; 80061; 81001; 82550; 82948; 83036; 83615; 83735; 84100; 84443; 84484; 84702; 85025; 85610; 85730; 87086; 93005; 93017; 93306; 96374; 96375; 96376; 99285; A9502; G0378; G0480; J2270; J2405; J2785; J7030

== ENCOUNTER 2018-10-19 12:22 | Emergency (ER) | payer BC ==
[2018-10-19 12:22] VITALS: BMI 46.0
[2018-10-19 12:38] VITALS: TEMP 98
[2018-10-19] MEDS ORDERED: Morphine 2 mg/ml ISec IVP STA (13:13)
--- NOTE | 2018-10-19 13:15 | ED PDOC ---
Arrival/HPI - General Chief Complaint: Chest Pain Time Seen by Provider: 10/19/18 12:42 - History of Present Illness Narrative History of Present Illness (Text): 10/19/18 13:15 33 y/o F w/ h/o opiate withdrawal syndrome presenting to the Emergency Room for mid-sternal chest pain that began yesterday. She reports being at home sedentary when she had abrupt onset of mid-sternal chest pain, unaffected by positional changes. She denies ingestion of alcohol, illicit substances or OCP use, but reports having similar symptoms previously that improved with the use of opiate medication. Of note, the patient states she recently ran out of her Percocet after using the last dose for her chest pain yesterday. She admits to diaphoresis, constipation, abdominal pain, shorteness of breath and slight nausea, but denies fevers, chills, dysuria, hematuria, syncopal episodes, dizziness, emesis or back pain. PCP: Dr. Star Kincaid Time/Duration: 24 hours Symptom Onset: Sudden Symptom Course: Worsening Quality: Tightness Severity Level: Moderate Activities at Onset: Rest Context: Home Past Medical History - Provider Review Nursing Documentation Reviewed: Yes - Travel History Have you recently traveled outside [place] w/in the past 3 mons?: No - Past History Past History: Non-Contributing - Infectious Disease Hx of Infectious Diseases: None - Tetanus Immunization Tetanus Immunization: Unknown - Cardiac Hx Cardiac Disorders: Yes Hx Hypertension: Yes Other/Comment: chest pain - Pulmonary Hx Respiratory Disorders: No - Neurological Hx Neurological Disorder: No Other/Comment: DX OF BRAIN TUMOR AUG 2016 - HEENT Hx HEENT Disorder: Yes Hx Blind: Yes (legally blind) - Renal Hx Renal Disorder: No - Endocrine/Metabolic Hx Endocrine Disorders: No - Hematological/Oncological Hx Blood Disorders: No - Integumentary Hx Dermatological Disorder: No - Musculoskeletal/Rheumatological Hx Back Pain: Yes Hx Falls: No Other/Comment: neck pain - Gastrointestinal Hx Gastrointestinal Disorders: No - Genitourinary/Gynecological Hx Genitourinary Disorders: No Other/Comment: ovarian cyst - Psychiatric Hx Anxiety: Yes Hx Depression: Yes Hx Substance Use: No - Surgical History Other/Comment: spinal surgery - Anesthesia Hx Anesthesia: Yes Hx Anesthesia Reactions: No Hx Malignant Hyperthermia: No Family/Social History - Physician Review Nursing Documentation Reviewed: Yes Family/Social History: Unknown Family HX Smoking Status: Never Smoked Hx Alcohol Use: No Hx Substance Use: No Hx Substance Use Treatment: No Allergies/Home Meds Allergies/Adverse Reactions: Allergies Penicillins Allergy (Verified 10/20/18 09:19) ANAPHYLAXIS Home Medications: Home Meds Medication Instructions Recorded Confirmed RX: Fluoxetine HCl [Prozac] 40 mg PO DAILY 05/19/18 10/20/18 RX: Zolpidem [Ambien] 10 mg PO HS 05/19/18 10/20/18 RX: buPROPion XL [Wellbutrin XL] 150 mg PO DAILY 05/19/18 10/20/18 RX: oxyCODONE [oxyCODONE Immediate 20 mg PO Q4 06/19/18 10/20/18 Release Tab] RX: oxyCODONE [oxyCONTIN Extended 60 mg PO Q12 06/19/18 10/20/18 Release Tab] Review of Systems - Physician Review All systems were reviewed & negative as marked: Yes - Review of Systems Respiratory: SOB. absent: Cough, Sputum Cardiovascular: Chest Pain. absent: Palpitations, Edema Gastrointestinal: Abdominal Pain, Constipation, Nausea. absent: Vomiting, Appetite Changes Genitourinary Female: absent: Dysuria, Hematuria Physical Exam Vital Signs Reviewed: Yes Vital Signs Temp Pulse Resp BP Pulse Ox 10/19/18 12:30 98 F 84 19 133/83 99 Temperature: Afebrile Blood Pressure: Normal Pulse: Regular Respiratory Rate: Normal Appearance: Positive for: Well-Appearing, Non-Toxic, Comfortable, Other (Diaphoretic) Mental Status: Positive for: Alert and Oriented X 3 - Systems Exam Head: Present: Atraumatic, Normocephalic Pupils: Present: PERRL Extroacular Muscles: Present: EOMI Conjunctiva: Present: Normal Mouth: Present: Moist Mucous Membranes Neck: Present: Normal Range of Motion Respiratory/Chest: Present: Clear to Auscultation, Good Air Exchange. No: Respiratory Distress, Accessory Muscle Use Cardiovascular: Present: Regular Rate and Rhythm, Normal S1, S2. No: Murmurs Abdomen: Present: Tenderness (subrapubic tenderness to palpation), Normal Bowel Sounds. No: Distention, Peritoneal Signs, Rebound, Guarding Upper Extremity: Present: Normal Inspection. No: Cyanosis, Edema Lower Extremity: Present: Normal Inspection. No: Edema Neurological: Present: GCS=15, CN II-XII Intact, Speech Normal Skin: Present: Warm, Dry, Normal Color. No: Rashes Psychiatric: Present: Alert, Oriented x 3, Normal Insight, Anxious Medical Decision Making ED Course and Treatment: 10/19/18 13:45 Impression 33 y/o F w/ h/o opiate withdrawal syndrome presenting to the ED for chest pain HEART Score:1 PERC Negative Differential Diagnoses Includes But Is Not Limited To: --ACS --PE --PNA --Gastritis Plan --Labs --EKG --NSS --UA --Urine Drug Screen --CXR --Percocet --Morphine --Valium --Toradol --Reassess & disposition Progress Notes 10/19/18 14:01 Labs reviewed with no leukocytosis noted. Pending troponin and BNP. Patient reassessed and still feels chest pain. 10/19/18 15:19 Troponin WNL and negative D-dimer. Patient reassesed and feels much better. 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 Importance of establishing an appointment with a pain management physician strongly encouraged with patient acknowleging she will follow up. She is stable for discharge. - Lab Interpretations Lab Results: 10/19/18 13:00 Lab Results 10/19/18 13:00: Urine Color Yellow, Urine Appearance Slight-cloudy, Urine pH 6.0, Ur Specific [place] >= 1.030, Urine Protein Negative, Urine Glucose (UA) Negative, Urine Ketones Negative, Urine Blood Trace-intact H, Urine Nitrate Negative, Urine Bilirubin Negative, Urine Urobilinogen 0.2, Ur Leukocyte Esterase Small H, Urine RBC 0 - 2, Urine WBC 2 - 5, Ur Epithelial Cells 1 - 3, Urine Bacteria Trace, Urine Other Mucus 10/19/18 13:00: WBC 10.1, RBC 5.56, Hgb 13.8, Hct 42.6, MCV 76.6 L, MCH 24.8 L, MCHC 32.4, RDW 15.0 H, Plt Count 359, MPV 9.2, Gran % 74.1 H, Lymph % (Auto) 21.3 L, Wright % (Auto) 4.3, Eos % (Auto) 0.1 L, Baso % (Auto) 0.2, Gran # 7.47 H, Lymph # (Auto) 2.2, Wright # (Auto) 0.4, Eos # (Auto) 0.0, Baso # (Auto) 0.02 I have reviewed the lab results: Yes - RAD Interpretation Radiology Orders: 10/19/18 12:52 CHEST PORTABLE [RAD] Stat - EKG Interpretation EKG Interpretation (Text): 10/19/18 13:49 NSR @ 86bpm No ST elevations/depressions Slight QT prolongation Disposition/Present on Arrival - Present on Arrival Any Indicators Present on Arrival: No History of DVT/PE: No History of Uncontrolled Diabetes: No Urinary Catheter: No History of Decub. Ulcer: No History Surgical Site Infection Following: None - Disposition Have Diagnosis and Disposition been Completed?: Yes Diagnosis: Chest pain Disposition: HOME/ ROUTINE Disposition Time: 15:10 Patient Plan: Discharge Patient Problems: Current Active Problems Problem Status Onset Sepsis Acute Urinary tract infection Acute Condition: STABLE Discharge Instructions (ExitCare): Chest Pain That Is Not Caused by the Heart (DC), Heart Disease in Women (DC), Chest Pain (ED) Print Language: SPANISH Prescriptions: oxyCODONE/Acetaminophen [Percocet 5/325 mg Tab] 1 ea PO Q8H #4 tab Referrals: Candelario Nava MD [Primary Care Provider] - Follow up with primary Rambo Rodriguez MD [Staff Provider] - Follow up with primary Forms: [employer] (Honduran)
[2018-10-19 13:21] LABS: BASO # 0.02 K/mm3 (0.0-2.0); BASO % 0.2 % (0.0-3.0); EOS % 0.1 % (1.5-5.0); GRAN # 7.47 (1.4-6.5); GRAN % 74.1 % (50.0-68.0); HEMOGLOBIN 13.8 g/dL (12.0-16.0); LYMPH # 2.2 (1.2-3.4); LYMPH % 21.3 % (22.0-35.0); MEAN CELL VOLUME 76.6 fl (80.0-105.0); MEAN CORPUSCULAR HEMOGLOBIN 24.8 pg (25.0-35.0); MEAN CORPUSCULAR HGB CONC 32.4 g/dl (31.0-37.0); MEAN PLATELET VOLUME 9.2 fl (7.0-11.0); MONO # 0.4 (0.1-0.6); MONO % 4.3 % (1.0-6.0); RBC 5.56 10^6/uL (3.5-6.1); WHITE BLOOD COUNT 10.1 10^3/uL (4.5-11.0)
[2018-10-19 13:24] LABS: URINE BILIRUBIN NEGATIVE (NEGATIVE); URINE BLOOD TRACE-INTACT (NEGATIVE); URINE GLUCOSE (UA) NEGATIVE (NEGATIVE); URINE LEUKOCYTE ESTERASE SMALL Leu/uL (NEGATIVE); URINE PROTEIN NEGATIVE mg/dL (<30 mg/dL); URINE UROBILINOGEN 0.2 E.U./dL (<1 E.U./dL)
[2018-10-19 13:25] LABS: URINE APPEARANCE SLIGHT-CLOUDY (CLEAR); URINE COLOR YELLOW (YELLOW)
[2018-10-19 13:28] LABS: URINE RBC 0 - 2 /hpf (0-2)
[2018-10-19 13:29] LABS: URINE BACTERIA TRACE (NEG)
[2018-10-19 14:08] LABS: ALB/GLOB RATIO 1.3 (1.1-1.8); ALT/SGPT 32 U/L (7-56); AST/SGOT 22 U/L (14-36); BLOOD UREA NITROGEN 11 mg/dL (7-21); GFR NON-AFRICAN AMERICAN > 60
[2018-10-19] MEDS ORDERED: Potassium Chloride 40 mEq/30 ml LIQ UD PO STA (14:09)
--- NOTE | 2018-10-19 14:11 | RAD ---
HISTORY: chest pain COMPARISON: Chest x-ray performed 07/13/18 TECHNIQUE: Chest, one view. FINDINGS: LUNGS: No focal consolidation. Please note that chest x-ray has limited sensitivity for the detection of pulmonary masses. PLEURA: No significant pleural effusion identified. No definite pneumothorax . CARDIOVASCULAR: Heart size appears within normal limits. No significant atherosclerotic calcification present. OSSEOUS STRUCTURES: Partially imaged cervical fusion hardware. VISUALIZED UPPER ABDOMEN: Unremarkable. OTHER FINDINGS: None. IMPRESSION: No focal consolidation. Hypoinflation.
[2018-10-19 14:19] LABS: B-TYPE NATRIURETIC PEPTIDE 111 pg/mL (0-450); TROPONIN I < 0.01 ng/mL
[2018-10-19] MEDS ORDERED: Morphine 4 mg/ml ISec IVP STA (14:36)
[2018-10-19 15:02] VITALS: BP 131/87; PULSE 76; RESP 16; O2SAT 100
--- NOTE | 2018-10-19 15:13 | CARD ---
APPROVED REPORT Date of service: 10/19/2018 EKG Measurement Heart [id number] <Conclusion> Normal sinus rhythm Normal ECG
== END 2018-10-19 15:33 | disposition home or self-care (01) ==
LOC: ED 12:22
DX: R07.9 Chest pain, unspecified (principal); I10 Essential (primary) hypertension
CPT/HCPCS: 71045; 80053; 81001; 83735; 83880; 84484; 85025; 85378; 87086; 93005; 96374; 96375; 96376; 99284; J1885; J2270; J2405; J3480

== ENCOUNTER 2018-10-20 09:00 | Inpatient (IN) | payer BC ==
[2018-10-20] MEDS ORDERED: Sodium Chloride 0.9% 1,000 ML IV STA ×2 (09:50→10:18)
--- NOTE | 2018-10-20 10:21 | RAD ---
HISTORY: chest pain COMPARISON: Chest x-ray performed 10/19/18 TECHNIQUE: Chest, one view. FINDINGS: Examination limited by habitus and hypoinflation. LUNGS: No focal consolidation. PLEURA: No significant pleural effusion identified. No definite pneumothorax . CARDIOVASCULAR: Heart size appears within normal limits. No significant atherosclerotic calcification present. OSSEOUS STRUCTURES: Partially imaged cervical fixation hardware. VISUALIZED UPPER ABDOMEN: Unremarkable. OTHER FINDINGS: None. IMPRESSION: No focal consolidation.
[2018-10-20 10:22] LABS: URINE BILIRUBIN SMALL (NEGATIVE); URINE BLOOD MODERATE (NEGATIVE); URINE GLUCOSE (UA) NEGATIVE (NEGATIVE); URINE LEUKOCYTE ESTERASE MODERATE Leu/uL (NEGATIVE); URINE PROTEIN NEGATIVE mg/dL (<30 mg/dL); URINE UROBILINOGEN 0.2 E.U./dL (<1 E.U./dL)
[2018-10-20 10:23] LABS: URINE APPEARANCE CLEAR (CLEAR); URINE COLOR YELLOW (YELLOW)
--- NOTE | 2018-10-20 10:30 | ED PDOC ---
Arrival/HPI - General Chief Complaint: Chest Pain Time Seen by Provider: 10/20/18 09:39 Historian: Patient - History of Present Illness Narrative History of Present Illness (Text): 10/20/18 10:25 33-year-old female presents today with epigastric abdominal pain chest pain shortness of breath nausea and vomiting. Patient states she's been feeling very anxious and has been profusely sweating. Patient states she was seen in the em ergency room yesterday and was given treatment for opiate withdrawal. Patient states she will was given a prescription for Percocet to go home with but at home she was unable to take the Percocet due to continued vomiting. Patient denies fevers or chills. She didn't complaining of chronic back pain. Patient denies dysuria or urinary frequency. Complaining of left-sided neck pain which she states is chronic. Patient states yesterday symptoms improved after morphine and Toradol and fluids, but symptoms immediately returned. Past Medical History - Provider Review Nursing Documentation Reviewed: Yes - Travel History Have you recently traveled outside [place] w/in the past 3 mons?: No - Past History Past History: Non-Contributing - Infectious Disease Hx of Infectious Diseases: None - Tetanus Immunization Tetanus Immunization: Unknown - Cardiac Hx Cardiac Disorders: Yes Hx Hypertension: Yes Other/Comment: chest pain - Pulmonary Hx Respiratory Disorders: No - Neurological Hx Neurological Disorder: Yes Other/Comment: BRAIN TUMOR - HEENT Hx HEENT Disorder: Yes Hx Blind: Yes (legally blind) - Renal Hx Renal Disorder: No - Endocrine/Metabolic Hx Endocrine Disorders: No - Hematological/Oncological Hx Blood Disorders: No - Integumentary Hx Dermatological Disorder: No - Musculoskeletal/Rheumatological Hx Musculoskeletal Disorders: Yes Hx Back Pain: Yes Other/Comment: neck pain - Gastrointestinal Hx Gastrointestinal Disorders: No - Genitourinary/Gynecological Hx Genitourinary Disorders: Yes Other/Comment: ovarian cyst - Psychiatric Hx Psychophysiologic Disorder: Yes Hx Anxiety: Yes Hx Depression: Yes Hx Substance Use: No - Surgical History Other/Comment: spinal surgery - Anesthesia Hx Anesthesia: Yes Hx Anesthesia Reactions: No Hx Malignant Hyperthermia: No Family/Social History - Physician Review Nursing Documentation Reviewed: Yes Family/Social History: Unknown Family HX Smoking Status: Never Smoked Hx Alcohol Use: No Hx Substance Use: No Hx Substance Use Treatment: No Allergies/Home Meds Allergies/Adverse Reactions: Allergies Penicillins Allergy (Verified 10/20/18 09:19) ANAPHYLAXIS Home Medications: Home Meds Medication Instructions Recorded Confirmed Fluoxetine HCl [Prozac] 40 mg PO DAILY 05/19/18 10/20/18 Zolpidem [Ambien] 10 mg PO HS 05/19/18 10/20/18 buPROPion XL [Wellbutrin XL] 150 mg PO DAILY 05/19/18 10/20/18 oxyCODONE [oxyCODONE Immediate 20 mg PO Q4 06/19/18 10/20/18 Release Tab] oxyCODONE [oxyCONTIN Extended 60 mg PO Q12 06/19/18 10/20/18 Release Tab] Review of Systems - Review of Systems Constitutional: Fatigue. absent: Fevers ENT: absent: Sinus Congestion Respiratory: absent: SOB, Cough Cardiovascular: Chest Pain, Palpitations Gastrointestinal: Abdominal Pain, Nausea, Vomiting Genitourinary Female: absent: Dysuria, Frequency Musculoskeletal: Back Pain, Neck Pain. absent: Arthralgias Skin: absent: Rash, Pruritis Neurological: Headache, Dizziness Psychiatric: Anxiety. absent: Depression, Suicidal Ideation Physical Exam Vital Signs Reviewed: Yes Vital Signs Temp Pulse Resp BP Pulse Ox 10/20/18 09:20 99.5 F 94 H 16 98/76 L 100 10/20/18 09:19 94 H 17 98/76 L 100 Temperature: Afebrile Blood Pressure: Hypotensive Pulse: Tachycardic Respiratory Rate: Normal Appearance: Positive for: Well-Appearing, Non-Toxic, Comfortable Pain Distress: None Mental Status: Positive for: Alert and Oriented X 3 - Systems Exam Head: Present: Atraumatic Pupils: Present: PERRL Extroacular Muscles: Present: EOMI Mouth: Present: Moist Mucous Membranes Neck: Present: Normal Range of Motion Respiratory/Chest: Present: Clear to Auscultation, Good Air Exchange. No: Respiratory Distress, Accessory Muscle Use Cardiovascular: Present: Regular Rate and Rhythm, Normal S1, S2, Tachycardic. No: Murmurs Abdomen: Present: Tenderness (minimal epigastric tenderness). No: Distention, Rebound, Guarding Back: Present: Normal Inspection Upper Extremity: Present: Normal ROM Lower Extremity: Present: Normal ROM Neurological: Present: GCS=15, Speech Normal Skin: Present: Warm, Normal Color, Diaphoretic. No: Rashes Psychiatric: Present: Alert, Oriented x 3 Medical Decision Making ED Course and Treatment: 10/20/18 10:40 33yr old on long time opiates presenting with cp, sob, diaphoresis nausea and vomiting unable to tolerate by mouth intake at home. Found to be hypotensive and tachycardic with low grade fever in er. refusing rectal temp. requesting narcotics. EKG: normal sinus rhythm with sinus arrhythmia at [address] elevations QTC 497 cbc: wbc; 13.3 cmp: wnl trop wnl dimer wnl cxr; wnl UA: + leukocytes, TNTC wbcs. lactate; 2.0 10/20/18 11:29 pt became hypertensive after 1L NS. 2nd Liter cancelled. CODE sepsis called as the patient initially presented with a heart rate of 94 has white blood cell count of 13.3 and a lactate of 2.0. Found to have a urinary tract infection on urinalysis blood and urine cultures are pending. Patient was started on aztreonam [address] abd/pelvis ordered. FINDINGS: LOWER THORAX: No visible consolidation, pleural effusion, or pneumothorax. LIVER: Unremarkable. GALLBLADDER AND BILE DUCTS: Unremarkable. PANCREAS: Unremarkable. SPLEEN: 8 mm probable splenule. Otherwise unremarkable. ADRENALS: Unremarkable. KIDNEYS AND URETERS: The kidneys enhance symmetrically. No hydronephrosis or obstructing calculus identified. VASCULATURE: No aortic aneurysm. No atherosclerotic calcification or mural plaque present. BOWEL: Stomach is nondistended. Lack of oral contrast limits evaluation for bowel pathology. Bowel loops appear within normal limits of caliber without evidence of obstruction. Thick-walled mid to distal transverse and left colon likely exaggerated by under distension; correlate clinically for possibility of colitis. APPENDIX: The appendix appears within normal limits of caliber. No secondary signs of acute appendicitis. PERITONEUM: No significant free fluid. No definite free air. LYMPH NODES: No bulky adenopathy identified. BLADDER: Unremarkable. REPRODUCTIVE: Uterus is present. BONES: No acute osseous abnormality is detected. OTHER FINDINGS: None. IMPRESSION: Thick-walled mid to distal transverse and left colon likely exaggerated by under distension; correlate clinically for possibility of colitis. 10/20/18 11:[address] fuentes. accepts admission. all aspects of this case were discussed the attending of record. pt feeling better after morphine; vitals stable. Impression: Sepsis, urinary tract infection admit med/surg Reassessment Condition: Re-examined, Improved - Lab Interpretations Lab Results: Lab Results 10/20/18 10:19: Urine Color Yellow, Urine Appearance Clear, Urine pH 6.0, Ur Specific [place] >= 1.030, Urine Protein Negative, Urine Glucose (UA) Negative, Urine Ketones 15 H, Urine Blood Moderate H, Urine Nitrate Negative, Urine Bilirubin Small H, Urine Urobilinogen 0.2, Ur Leukocyte Esterase Moderate H, Ur ine RBC Pending, Urine WBC Pending - RAD Interpretation Radiology Orders: 10/20/18 09:50 CHEST PORTABLE [RAD] Stat - Medication Orders Current Medication Orders: Sodium Chloride (Sodium Chloride 0.9%) 1,000 mls @ 999 mls/hr IV .Q1H1M STA Stop: 10/20/18 10:50 Sodium Chloride (Sodium Chloride 0.9%) 1,000 mls @ 999 mls/hr IV .Q1H1M STA Stop: 10/20/18 11:18 Discontinued Medications Ondansetron HCl (Zofran Inj) 4 mg IVP STAT STA Stop: 10/20/18 09:54 Disposition/Present on Arrival - Present on Arrival Any Indicators Present on Arrival: No History of DVT/PE: No History of Uncontrolled Diabetes: No Urinary Catheter: No History of Decub. Ulcer: No History Surgical Site Infection Following: None - Disposition Have Diagnosis and Disposition been Completed?: Yes Diagnosis: Urinary tract infection, Sepsis Disposition: HOSPITALIZED Disposition Time: 11:53 Patient Plan: Admission Patient Problems: Current Active Problems Problem Status Onset Sepsis Acute Urinary tract infection Acute Condition: FAIR
[2018-10-20 10:36] LABS: URINE BACTERIA SMALL (NEG); URINE RBC 0 - 2 /hpf (0-2); URINE WBC TNTC /hpf (0-6)
[2018-10-20 10:48] LABS: BASO # 0.02 K/mm3 (0.0-2.0); BASO % 0.2 % (0.0-3.0); GRAN # 11.08 (1.4-6.5); HEMOGLOBIN 13.9 g/dL (12.0-16.0); LYMPH # 1.9 (1.2-3.4); LYMPH % 14.3 % (22.0-35.0); MEAN CELL VOLUME 76.7 fl (80.0-105.0); MEAN CORPUSCULAR HEMOGLOBIN 24.9 pg (25.0-35.0); MEAN CORPUSCULAR HGB CONC 32.5 g/dl (31.0-37.0); MEAN PLATELET VOLUME 9.4 fl (7.0-11.0); MONO # 0.3 (0.1-0.6); MONO % 2.5 % (1.0-6.0); RBC 5.58 10^6/uL (3.5-6.1); RED CELL DISTRIBUTION WIDTH 14.9 % (11.5-14.5); WHITE BLOOD COUNT 13.3 10^3/uL (4.5-11.0)
[2018-10-20 11:10] LABS: ALB/GLOB RATIO 1.2 (1.1-1.8); ALBUMIN 4.6 g/dL (3.0-4.8); ALT/SGPT 25 U/L (7-56); AST/SGOT 23 U/L (14-36); BLOOD UREA NITROGEN 12 mg/dL (7-21); CALCIUM 9.9 mg/dL (8.4-10.5); GFR NON-AFRICAN AMERICAN > 60; LIPASE 95 U/L (23-300)
[2018-10-20 11:12] LABS: VENOUS BLOOD GAS BASE EXCESS 1.7 mmol/L (0.0-2.0); VENOUS BLOOD GAS PO2 35 mm/Hg (30-55); VENOUS BLOOD PH 7.44 (7.32-7.43)
[2018-10-20 11:20] LABS: TROPONIN I < 0.01 ng/mL
[2018-10-20] MEDS ORDERED: Aztreonam 2 Gm in NS 100mL 100 ML IVPB STA (11:23)
[2018-10-20] MEDS ORDERED: Iohexol 350 MG/100 ML VIAL ONE (11:44)
[2018-10-20] MEDS ORDERED: Morphine 4 mg/ml ISec IVP STA (11:59)
--- NOTE | 2018-10-20 12:36 | CT ---
Date of service: 10/20/2018 PROCEDURE: CT Abdomen and Pelvis with contrast HISTORY: abd pain COMPARISON: Chest x-ray performed 10/20/18, CT abdomen pelvis without contrast performed 04/23/18 TECHNIQUE: Contrast dose: 100 mL Omnipaque 300 Radiation dose: Total exam DLP = 1154.27 mGy-cm. This CT exam was performed using one or more of the following dose reduction techniques: Automated exposure control, adjustment of the mA and/or kV according to patient size, and/or use of iterative reconstruction technique. FINDINGS: LOWER THORAX: No visible consolidation, pleural effusion, or pneumothorax. LIVER: Unremarkable. GALLBLADDER AND BILE DUCTS: Unremarkable. PANCREAS: Unremarkable. SPLEEN: 8 mm probable splenule. Otherwise unremarkable. ADRENALS: Unremarkable. KIDNEYS AND URETERS: The kidneys enhance symmetrically. No hydronephrosis or obstructing calculus identified. VASCULATURE: No aortic aneurysm. No atherosclerotic calcification or mural plaque present. BOWEL: Stomach is nondistended. Lack of oral contrast limits evaluation for bowel pathology. Bowel loops appear within normal limits of caliber without evidence of obstruction. Thick-walled mid to distal transverse and left colon likely exaggerated by under distension; correlate clinically for possibility of colitis. APPENDIX: The appendix appears within normal limits of caliber. No secondary signs of acute appendicitis. PERITONEUM: No significant free fluid. No definite free air. LYMPH NODES: No bulky adenopathy identified. BLADDER: Unremarkable. REPRODUCTIVE: Uterus is present. BONES: No acute osseous abnormality is detected. OTHER FINDINGS: None. IMPRESSION: Thick-walled mid to distal transverse and left colon likely exaggerated by under distension; correlate clinically for possibility of colitis.
[2018-10-20 14:31] LABS: VENOUS BLOOD GAS PO2 56 mm/Hg (30-55); VENOUS BLOOD PH 7.45 (7.32-7.43)
[2018-10-20] MEDS: buPROPion 150 mg/24 Hours XL Tab PO SCH (14:46)
[2018-10-20] MEDS: oxyCODONE 10 mg Immediate Release Tab PO PRN ×2 (14:46→19:03)
--- NOTE | 2018-10-20 15:05 | PCM.SEPTIC ---
Sepsis Progress Note - Reassessment Type Date of Evaluation: 10/20/18 Time of Evaluation: 14:29 Reassessment Type: Non-invasive reassessment - Non Invasive Reassessment Were the most recent vital sign reviewed: Yes Vital Sign (Latest): Temp Pulse Resp BP Pulse Ox 99.5 F 68 16 131/92 H 100 10/20/18 09:20 10/20/18 13:30 10/20/18 13:30 10/20/18 13:30 10/20/18 13:30 Cardiovascular: Yes: Regular Rate, Rhythm, Chest Non Tender. No: Edema, Gallop, JVD, Murmur, Bradycardia, Tachycardia Respiratory: Yes: Normal Breath Sounds. No: Rales, Rhonchi, Wheezing, Respiratory Distress Capillary Refill: Normal (Less than 2 sec) Skin: Normal Color, Warm, Dry - Invasive Reassessment (complete 2 of 4) Was a Central Venous Pressure Measurement obtained within 6 Hours after the presentation of septic shock: No Was a central venous oxygen measurement obtained within 6 hours after the presentation of septic shock: No Was a bedside cardiovascular ultrasound performed within 6 hours after the presentation of septic shock: No Was a passive leg raise performed or was a fluid challenge performed within 6 hrs of the initial fluid bolus: Yes Fluid Challenge performed: Yes
[2018-10-20 18:22] VITALS: BMI 44.2
--- NOTE | 2018-10-20 18:34 | CARD ---
APPROVED REPORT Date of service: 10/20/2018 EKG Measurement Heart [id number] <Conclusion> Normal sinus rhythm with sinus arrhythmia Nonspecific T wave abnormality Abnormal ECG
[2018-10-21] MEDS: oxyCODONE 10 mg Immediate Release Tab PO PRN ×4 (01:22→20:38)
--- NOTE | 2018-10-21 07:46 | CP.PCM.CON ---
<Marissa Gonzalez - Last Filed: 10/21/18 13:36> History of Present Illness - History of Present Illness History of Present Illness: PGY-[address] Carrillo ID consult: sepsis Ms Orozco, 33 F c/o chest pain, shortness of breath, epigastric abdominal pain, nausea and vomiting with profusely sweating. She did not take her chronic nacotics because not feeling well since /sunday. She vomited 3 times Sunday, cannot tolerate any PO intake on Sunday (no vomit). She had diarrhea, loose stool, non-bloody, once daily. Today she felt better. Patient went to emergency room Sunday and was treated for opiate withdrawal. Patient states she will was given a prescription for Percocet to go home with but at home she was unable to take the Percocet due to continued vomiting. In ED, pt was hypote nsive @ 98/76 with Tmax 99.5, HR 97 cbc: wbc; 13.3 cmp: wnl trop wnl; dimer wnl lactate; 2.0 UA: Epithelial cell 1-3, TNTC wbcs, positive leuk est, negative nitrate Urine culture: less than 1000 CFU EKG: normal sinus rhythm with sinus arrhythmia at [address] elevations QTC 497 Abd/Pelvic CT: thick-wall in transverse and L descending colon. ? colitis Code sepsis was called for leukocytosis of 13.3, undocumented tachycardia, lactate 2. After 1L fluid, pt became hypertensive. She was put on Aztreonam for PCN allergy. She received 1 dose of aztreonam thus far ROS: Denies fevers or chills. She didn't complaining of chronic back pain. Patient denies dysuria or urinary frequency. Complaining of left-sided neck pain which she states is chronic. Patient states yesterday symptoms improved after morphine and Toradol and fluids, but symptoms immediately returned. PMD: Dr Nava PMH Questionable Brain tumor, Aug 2016. Pt did not recall craniotomy legally blind chonic neck pain s/p spinal surgery, chronic opiates ovaian cyst Depression PSH Cervical laminectomy, 2016, by Dr Hernandez Gastric lap band placement and removal in 2014 Uterine fibroid removal, 2015 [facility] denies smoke, etoh, drugs All pcn Med Percocet, ocycontin, ocycodone ASA, lipior, Clonidine,wellbutrin, prozac, lipitor Past Patient History - Infectious Disease Hx of Infectious Diseases: None - Tetanus Immunizations Tetanus Immunization: Unknown - Past Medical History & Family History Past Medical History?: Yes - Past Social History Smoking Status: Never Smoked - CARDIAC Hx Cardiac Disorders: Yes Hx Hypertension: Yes - PULMONARY Hx Respiratory Disorders: No - NEUROLOGICAL Hx Neurological Disorder: Yes (brain tumor calcified) - HEENT Hx HEENT Problems: Yes Hx Blind: Yes (legally blind) - RENAL Hx Chronic Kidney Disease: No - ENDOCRINE/METABOLIC Hx Endocrine Disorders: No - HEMATOLOGICAL/ONCOLOGICAL Hx Blood Disorders: No - INTEGUMENTARY Hx Dermatological Problems: No - MUSCULOSKELETAL/RHEUMATOLOGICAL Hx Musculoskeletal Disorders: Yes (back pain) Hx Degenerative Joint Disease: Yes Hx Falls: No Hx Herniated Disk: Yes (spinal surgery) - GASTROINTESTINAL Hx Gastrointestinal Disorders: No - GENITOURINARY/GYNECOLOGICAL Hx Genitourinary Disorders: No - PSYCHIATRIC Hx Psychophysiologic Disorder: Yes Hx Anxiety: Yes Hx Depression: Yes - SURGICAL HISTORY Hx Surgeries: Yes Hx Musculoskeletal Surgery: Yes - ANESTHESIA Hx Anesthesia: Yes Hx Anesthesia Reactions: No Hx Malignant Hyperthermia: No Meds Allergies/Adverse Reactions: Allergies Allergy/AdvReac Type Severity Reaction Status Date / Time Penicillins Allergy ANAPHYLAXIS Verified 10/20/18 09:19 - Medications Medications: Current Medications Aspirin (Aspirin Chewable) 81 mg PO DAILY [facility] Last Admin: 10/20/18 14:46 Dose: 81 mg Atorvastatin Calcium (Lipitor) 10 mg PO DIN [facility] Last Admin: 10/20/18 17:35 Dose: 10 mg Bupropion HCl (Wellbutrin Xl) 150 mg PO DAILY [facility] Last Admin: 10/20/18 14:46 Dose: 150 mg Clonidine HCl (Catapres) 0.1 mg PO BID [facility] Last Admin: 10/20/18 17:34 Dose: 0.1 mg Famotidine (Pepcid) 20 mg IVP DAILY [facility] Last Admin: 10/20/18 16:29 Dose: 20 mg Fluoxetine HCl (Prozac) 40 mg PO DAILY [facility] Last Admin: 10/20/18 14:46 Dose: 40 mg Ondansetron HCl (Zofran Inj) 4 mg IVP Q4H PRN PRN Reason: Nausea/Vomiting Last Admin: 10/21/18 02:28 Dose: 4 mg Oxycodone HCl (Oxycodone Immediate Release Tab) 20 mg PO Q6 PRN PRN Reason: Pain, severe (8-10) Last Admin: 10/21/18 07:19 Dose: 20 mg Zolpidem Tartrate (Ambien) 10 mg PO HS [facility]; Protocol Last Admin: 10/20/18 21:38 Dose: 10 mg Physical Exam - Constitutional Appears: No Acute Distress - Head Exam Head Exam: ATRAUMATIC, NORMAL INSPECTION, NORMOCEPHALIC - Eye Exam Eye Exam: EOMI, Normal appearance, PERRL. absent: Scleral icterus Pupil Exam: NORMAL ACCOMODATION - ENT Exam ENT Exam: Mucous Membranes Moist - Neck Exam Additional comments: supple - Respiratory Exam Respiratory Exam: Clear to Auscultation Bilateral, NORMAL BREATHING PATTERN. absent: Decreased Breath Sounds, Rales, Rhonchi, Wheezes - Cardiovascular Exam Cardiovascular Exam: REGULAR RHYTHM, +S1, +S2. absent: Systolic Murmur - GI/Abdominal Exam GI & Abdominal Exam: Normal Bowel Sounds, Soft. absent: Distended, Firm, Guarding, Rigid, Tenderness - Extremities Exam Extremities exam: Positive for: normal inspection. Negative for: calf tenderness - Back Exam Back exam: absent: CVA tenderness (L), CVA tenderness (R) Additional comments: no suprapubic tendernss - Neurological Exam Neurological exam: Alert, CN II-XII Intact, Oriented x3 - Psychiatric Exam Psychiatric exam: Normal Affect, Normal Mood - Skin Skin Exam: Dry, Normal Color Results - Vital Signs Recent Vital Signs: Last Vital Signs Temp 98.5 F 10/20/18 18:00 Pulse 83 10/20/18 18:00 Resp 19 10/20/18 18:05 BP 146/91 H 10/20/18 18:00 Pulse Ox 98 10/20/18 18:00 - Labs Result Diagrams: 10/21/18 09:00 10/20/18 10:22 Labs: Laboratory Results - last 24 hr 10/20/18 10/20/18 10/20/18 10:19 10:22 10:22 WBC RBC Hgb Hct MCV MCH MCHC RDW Plt Count MPV Gran % Lymph % (Auto) Rogers % (Auto) Eos % (Auto) Baso % (Auto) Gran # Lymph # (Auto) Rogers # (Auto) Eos # (Auto) Baso # (Auto) D-Dimer, Quantitative < 200 pO2 35 VBG pH 7.44 H VBG pCO2 38.0 L VBG HCO3 25.8 VBG Total CO2 27.0 VBG O2 Sat (Calc) 72.9 H VBG Base Excess 1.7 VBG Potassium 3.9 Sodium 142.0 Chloride 103.0 Glucose 142 H Lactate 2.0 FiO2 21.0 Potassium Carbon Dioxide Anion Gap BUN Creatinine Est GFR ( Amer) Est GFR (Non-Af Amer) POC Glucose (mg/dL) Random Glucose Calcium Magnesium Total Bilirubin AST ALT Alkaline Phosphatase Lactate Dehydrogenase Total Creatine Kinase Troponin I Total Protein Albumin Globulin Albumin/Globulin Ratio Lipase Venous Blood Potassium 3.9 Urine Color Yellow Urine Appearance Clear Urine pH 6.0 Ur Specific Eros >= 1.030 Urine Protein Negative Urine Glucose (UA) Negative Urine Ketones 15 H Urine Blood Moderate H Urine Nitrate Negative Urine Bilirubin Small H Urine Urobilinogen 0.2 Ur Leukocyte Esterase Moderate H Urine RBC 0 - 2 Urine WBC Tntc Ur Epithelial Cells 1 - 3 Urine Bacteria Small 10/20/18 10/20/18 10/20/18 10:22 10:22 14:10 WBC 13.3 H D RBC 5.58 Hgb 13.9 Hct 42.8 MCV 76.7 L MCH 24.9 L MCHC 32.5 RDW 14.9 H Plt Count 385 MPV 9.4 Gran % 83.0 H Lymph % (Auto) 14.3 L Rogers % (Auto) 2.5 Eos % (Auto) 0.0 L Baso % (Auto) 0.2 Gran # 11.08 H Lymph # (Auto) 1.9 Rogers # (Auto) 0.3 Eos # (Auto) 0.0 Baso # (Auto) 0.02 D-Dimer, Quantitative pO2 56 H VBG pH 7.45 H VBG pCO2 32.0 L VBG HCO3 22.2 VBG Total CO2 23.2 VBG O2 Sat (Calc) 92.4 H VBG Base Excess -1.0 L VBG Potassium 3.6 Sodium 140 144.0 Chloride 104 106.0 Glucose 111 H Lactate 2.3 H FiO2 21.0 Potassium 3.9 Carbon Dioxide 24 Anion Gap 16 BUN 12 Creatinine 0.8 Est GFR ( Amer) > 60 Est GFR (Non-Af Amer) > 60 POC Glucose (mg/dL) Random Glucose 144 H Calcium 9.9 Magnesium 2.1 Total Bilirubin 0.7 AST 23 ALT 25 Alkaline Phosphatase 139 H Lactate Dehydrogenase 419 Total Creatine Kinase 71 Troponin I < 0.01 Total Protein 8.7 H Albumin 4.6 Globulin 4.0 Albumin/Globulin Ratio 1.2 Lipase 95 Venous Blood Potassium 3.6 Urine Color Urine Appearance Urine pH Ur Specific Eros Urine Protein Urine Glucose (UA) Urine Ketones Urine Blood Urine Nitrate Urine Bilirubin Urine Urobilinogen Ur Leukocyte Esterase Urine RBC Urine WBC Ur Epithelial Cells Urine Bacteria 10/21/18 07:21 WBC RBC Hgb Hct MCV MCH MCHC RDW Plt Count MPV Gran % Lymph % (Auto) Rogers % (Auto) Eos % (Auto) Baso % (Auto) Gran # Lymph # (Auto) Rogers # (Auto) Eos # (Auto) Baso # (Auto) D-Dimer, Quantitative pO2 VBG pH VBG pCO2 VBG HCO3 VBG Total CO2 VBG O2 Sat (Calc) VBG Base Excess VBG Potassium Sodium Chloride Glucose Lactate FiO2 Potassium Carbon Dioxide Anion Gap BUN Creatinine Est GFR ( Amer) Est GFR (Non-Af Amer) POC Glucose (mg/dL) 133 H Random Glucose Calcium Magnesium Total Bilirubin AST ALT Alkaline Phosphatase Lactate Dehydrogenase Total Creatine Kinase Troponin I Total Protein Albumin Globulin Albumin/Globulin Ratio Lipase Venous Blood Potassium Urine Color Urine Appearance Urine pH Ur Specific Eros Urine Protein Urine Glucose (UA) Urine Ketones Urine Blood Urine Nitrate Urine Bilirubin Urine Urobilinogen Ur Leukocyte Esterase Urine RBC Urine WBC Ur Epithelial Cells Urine Bacteria Assessment & Plan - Assessment and Plan (Free Text) Plan: Ms Orozco, 33 F with PMHx chronic neck pain s/p cervical laminectomy, Hx gastrip lap band removal 2014, c/o rrhinorhea, epigastric abdominal pain, nausea, vomiting, and diarrhea. SIRS (WBC 13.3, HR 97) probably due to viral gastroenteritis, Doubt bacterial infection since symptoms improves in 2 days Pyuria likely reactive to GI irritation. Urine culture negative Elevated Lactate due to dehydration secondary to low PO intact, vomit, and diarrhea - Pt tolerates water intake. Advance diet PRN. - observe off antibiotics - supportive treatment, maintain adequate hydration - continue to trend WBC, temp, clinical course - blood culture: neg x 1d S/r/d/w Dr Carrillo <Jose Carrillo - Last Filed: 10/21/18 14:08> Meds - Medications Medications: Current Medications Aspirin (Aspirin Chewable) 81 mg PO DAILY [facility] Last Admin: 10/21/18 09:14 Dose: 81 mg Atorvastatin Calcium (Lipitor) 10 mg PO DIN [facility] Last Admin: 10/20/18 17:35 Dose: 10 mg Bupropion HCl (Wellbutrin Xl) 150 mg PO DAILY [facility] Last Admin: 10/21/18 09:17 Dose: 150 mg Clonidine HCl (Catapres) 0.1 mg PO BID [facility] Last Admin: 10/21/18 09:14 Dose: 0.1 mg Famotidine (Pepcid) 20 mg PO DAILY [facility] Fluoxetine HCl (Prozac) 40 mg PO DAILY [facility] Last Admin: 10/21/18 09:17 Dose: 40 mg Ondansetron HCl (Zofran Inj) 4 mg IVP Q4H PRN PRN Reason: Nausea/Vomiting Last Admin: 10/21/18 09:18 Dose: 4 mg Oxycodone HCl (Oxycodone Immediate Release Tab) 20 mg PO Q6 PRN PRN Reason: Pain, severe (8-10) Last Admin: 10/21/18 13:01 Dose: 20 mg Zolpidem Tartrate (Ambien) 10 mg PO HS [facility]; Protocol Last Admin: 10/20/18 21:38 Dose: 10 mg Results - Vital Signs Recent Vital Signs: Last Vital Signs Temp 98.3 F 10/21/18 08:04 Pulse 97 H 10/21/18 09:14 Resp 19 10/21/18 08:04 BP 149/81 10/21/18 09:14 Pulse Ox 100 10/21/18 08:04 - Labs Result Diagrams: 10/21/18 09:00 10/20/18 10:22 Labs: Laboratory Results - last 24 hr 10/20/18 10/21/18 10/21/18 14:10 07:21 09:00 WBC 14.5 H RBC 5.72 Hgb 14.2 Hct 44.2 MCV 77.3 L MCH 24.8 L MCHC 32.1 RDW 15.3 H Plt Count 407 MPV 9.1 Gran % 74.3 H Lymph % (Auto) 21.0 L Rogers % (Auto) 4.4 Eos % (Auto) 0.1 L Baso % (Auto) 0.2 Gran # 10.74 H Lymph # (Auto) 3.0 Rogers # (Auto) 0.6 Eos # (Auto) 0.0 Baso # (Auto) 0.03 pO2 56 H VBG pH 7.45 H VBG pCO2 32.0 L VBG HCO3 22.2 VBG Total CO2 23.2 VBG O2 Sat (Calc) 92.4 H VBG Base Excess -1.0 L VBG Potassium 3.6 Sodium 144.0 Chloride 106.0 Glucose 111 H Lactate 2.3 H FiO2 21.0 POC Glucose (mg/dL) 133 H Venous Blood Potassium 3.6 Assessment & Plan - Assessment and Plan (Free Text) Plan: Infectious diseases Attending Physician Attestation Patient seen and examined, discussed with medical aides teacher. I have reviewed the patient's history of present illness, past medical, social, personal and family histories, pertinent physical exam findings, course so far in this hospital admission, pertinent laboratory and imaging results. I agree with the above findings, assessment and plan. In addition, patient with SIRS with probable vir al gastroenteritis. GI symptoms have resolved and patient is feeling better. Follow up blood cx. Patient does not have urinary symptoms. Trend WBC count.
[2018-10-21] MEDS: buPROPion 150 mg/24 Hours XL Tab PO SCH (09:17)
[2018-10-21 09:20] LABS: BASO # 0.03 K/mm3 (0.0-2.0); BASO % 0.2 % (0.0-3.0); EOS % 0.1 % (1.5-5.0); GRAN # 10.74 (1.4-6.5); GRAN % 74.3 % (50.0-68.0); HEMOGLOBIN 14.2 g/dL (12.0-16.0); MEAN CELL VOLUME 77.3 fl (80.0-105.0); MEAN CORPUSCULAR HEMOGLOBIN 24.8 pg (25.0-35.0); MEAN CORPUSCULAR HGB CONC 32.1 g/dl (31.0-37.0); MEAN PLATELET VOLUME 9.1 fl (7.0-11.0); MONO # 0.6 (0.1-0.6); MONO % 4.4 % (1.0-6.0); RBC 5.72 10^6/uL (3.5-6.1); RED CELL DISTRIBUTION WIDTH 15.3 % (11.5-14.5); WHITE BLOOD COUNT 14.5 10^3/uL (4.5-11.0)
--- NOTE | 2018-10-21 13:53 | CON ---
DATE: 10/21/2018 HISTORY OF PRESENT ILLNESS: The patient is a 33-year-old single white female with a history of anxiety and depression. No psychiatric hospitalizations and no suicide attempts, possible history of painkiller dependency, who is currently following up with Dr. Pitt and compliant with medications of Wellbutrin XL, Prozac and Ambien. She is on the medical floor after she presented to the ER with shortness of breath, nausea and vomiting. Treatment team thought that the patient appeared depressed and anxious. I met with the patient at bedside, and she is alert and well oriented to month, year, location, circumstances. Her focus and eye contact are good and her responses appear reliable. Thought process is coherent, logical and goal-directed. She presents with consistent information during the course of our discussion. The patient currently denies having any psychological issues. She feels fairly good and positive and feels that the medications prescribed by Dr. Pitt are working. She is not suicidal, she is hopeful. She is relieved that her nausea and her vomiting has abated to some extent. She still has thoughts of anxiety up and down, but in general, she feels like she is functioning well and plans to follow with Dr. iPtt. She denies any perceptual disturbance, delusions were not elicited and she is not paranoid. Her insight and judgment are considered to be fair. PSYCHIATRIC HISTORY: As noted above. The patient denies any psychiatric hospitalizations or prior suicide attempts. She is currently in treatment with Dr. Pitt and is prescribed Wellbutrin XL 150 mg daily, Prozac 40 mg daily and Ambien 10 mg at bedtime p.r.n. Last followup with Dr. Pitt was 3 months ago. SOCIAL HISTORY: The patient is born and raised in [place]. She is single. She has no children. She lives with her parents. 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 Labs and vitals were reviewed. RELEVANT PSYCHIATRIC MEDICATIONS: Wellbutrin XL 150 mg daily, Prozac 40 mg daily and Ambien 10 mg at bedtime. IMPRESSION: Opioid withdrawal, rule out opioid dependence in context of chronic pain. History of depression and anxiety, currently stable. RECOMMENDATIONS: The patient should continue with current medications as prescribed. There is no acute indication to change them for any further psychiatric interventions. The patient reports that she will continue to follow up with Dr. Hriso once she is medically cleared, psychiatry will sign off at this time. Jules Kennedy MD
[2018-10-21 16:56] VITALS: RESP 20
[2018-10-21] MEDS: oxyCODONE 20 mg ER Tab (oxyCONTIN) PO SCH (21:41)
[2018-10-22] MEDS: oxyCODONE 10 mg Immediate Release Tab PO PRN ×2 (03:54→09:41)
--- NOTE | 2018-10-22 07:13 | CP.PCM.PN ---
<Marissa Gonzalez - Last Filed: 10/22/18 12:49> Subjective - Date & Time of Evaluation Date of Evaluation: 10/22/18 Time of Evaluation: 07:13 - Subjective Subjective: PGY-[address] Carrillo ID progress note Still nausea. tolerated food. denies f/c, n/v/d, dysuria/frequency Objective - Vital Signs/Intake and Output Vital Signs (last 24 hours): Temp Pulse Resp BP Pulse Ox 97.6 F 99 H 20 120/76 96 10/21/18 16:54 10/21/18 18:07 10/21/18 16:54 10/21/18 18:07 10/21/18 16:54 - Medications Medications: Current Medications Aspirin (Aspirin Chewable) 81 mg PO DAILY [facility] Last Admin: 10/21/18 09:14 Dose: 81 mg Atorvastatin Calcium (Lipitor) 10 mg PO DIN [facility] Last Admin: 10/21/18 18:08 Dose: 10 mg Bupropion HCl (Wellbutrin Xl) 150 mg PO DAILY [facility] Last Admin: 10/21/18 09:17 Dose: 150 mg Clonidine HCl (Catapres) 0.1 mg PO BID [facility] Last Admin: 10/21/18 18:07 Dose: 0.1 mg Docusate Sodium (Colace) 100 mg PO DAILY [facility] Famotidine (Pepcid) 20 mg PO DAILY [facility] Fluoxetine HCl (Prozac) 40 mg PO DAILY [facility] Last Admin: 10/21/18 09:17 Dose: 40 mg Ondansetron HCl (Zofran Inj) 4 mg IVP Q4H PRN PRN Reason: Nausea/Vomiting Last Admin: 10/21/18 09:18 Dose: 4 mg Oxycodone HCl (Oxycodone Immediate Release Tab) 20 mg PO Q6 PRN PRN Reason: Pain, severe (8-10) Last Admin: 10/22/18 03:54 Dose: 20 mg Oxycodone HCl (Oxycontin Extended Release Tab) 20 mg PO Q12 [facility] Last Admin: 10/21/18 21:41 Dose: 20 mg Zolpidem Tartrate (Ambien) 10 mg PO HS [facility]; Protocol Last Admin: 10/21/18 21:41 Dose: 10 mg - Labs Labs: 10/21/18 09:00 10/20/18 10:22 - Constitutional Appears: No Acute Distress - Head Exam Head Exam: ATRAUMATIC, NORMAL INSPECTION, NORMOCEPHALIC - Eye Exam Eye Exam: EOMI, Normal appearance, PERRL. absent: Scleral icterus Pupil Exam: NORMAL ACCOMODATION - ENT Exam ENT Exam: Mucous Membranes Moist - Neck Exam Additional comments: supple - Respiratory Exam Respiratory Exam: Clear to Ausculation Bilateral, NORMAL BREATHING PATTERN. absent: Rales, Rhonchi, Wheezes - Cardiovascular Exam Cardiovascular Exam: REGULAR RHYTHM, +S1, +S2 - GI/Abdominal Exam GI & Abdominal Exam: Soft, Normal Bowel Sounds. absent: Guarding, Rigid, Organomegaly - Extremities Exam Extremities Exam: Normal Capillary Refill. absent: Calf Tenderness - Back Exam Back Exam: absent: CVA tenderness (L), CVA tenderness (R) - Neurological Exam Neurological Exam: Alert, Awake, Normal Gait, Oriented x3 - Psychiatric Exam Psychiatric exam: Normal Affect, Normal Mood - Skin Skin Exam: Dry, Warm Assessment and Plan - Assessment and Plan (Free Text) Plan: Ms Orozco, 33 F with PMHx chronic neck pain s/p cervical laminectomy, Hx gastrip lap band removal 2014, c/o rrhinorhea, epigastric abdominal pain, nausea, vomiting, and diarrhea. SIRS (WBC 13.3, HR 97) probably due to viral gastroenteritis - leukocytosis, vomiting, diarrhea resolved Doubt bacterial infection since symptoms improves in 2 days. Nausea likely due to resolving narcotic withdrawal Pyuria likely reactive to GI irritation. Urine culture negative. Pt has no urinary symptoms Elevated Lactate due to dehydration secondary to low PO intact, vomit, and diarrhea Opioid withdrawal, back on home oxycontin/oxycodone - Pt tolerates diet. GI symptoms resolved - observe off antibiotics - supportive treatment, maintain adequate hydration - continue to trend WBC, temp, clinical course - blood culture: neg x 2d; Urine culture negative - Pt refuse heplock s/r/d/w Dr. Carrillo <Jose Carrillo - Last Filed: 10/22/18 14:23> Objective - Vital Signs/Intake and Output Vital Signs (last 24 hours): Temp Pulse Resp BP Pulse Ox 98.4 F 76 20 124/80 95 10/22/18 08:41 10/22/18 09:33 10/22/18 08:41 10/22/18 09:33 12/18/18 08:41 - Labs Labs: 10/22/18 06:30 10/22/18 06:30 Assessment and Plan - Assessment and Plan (Free Text) Plan: Infectious diseases Attending Physician Attestation Patient seen and examined, discussed with medical coding manager. I have reviewed the patient's history of present illness, past medical, social, personal and family histories, pertinent physical exam findings, course so far in this hospital ad mission, pertinent laboratory and imaging results. I agree with the above findings, assessment and plan. In addition, patient with SIRS with probable viral gastroenteritis. GI symptoms have resolved and patient is feeling better. Blood cx are negative. Patient does not have urinary symptoms. WBC count has normalized. Monitor off antibiotics.
[2018-10-22 07:18] LABS: BASO # 0.02 K/mm3 (0.0-2.0); BASO % 0.2 % (0.0-3.0); EOS # 0.1 (0.0-0.7); GRAN # 5.13 (1.4-6.5); GRAN % 57.9 % (50.0-68.0); HEMOGLOBIN 12.2 g/dL (12.0-16.0); LYMPH % 33.9 % (22.0-35.0); MEAN CELL VOLUME 77.6 fl (80.0-105.0); MEAN PLATELET VOLUME 9.4 fl (7.0-11.0); MONO # 0.6 (0.1-0.6); RBC 5.08 10^6/uL (3.5-6.1); RED CELL DISTRIBUTION WIDTH 15.1 % (11.5-14.5); WHITE BLOOD COUNT 8.9 10^3/uL (4.5-11.0)
[2018-10-22 07:46] LABS: ALB/GLOB RATIO 1.3 (1.1-1.8); ALBUMIN 4.2 g/dL (3.0-4.8); ALT/SGPT 22 U/L (7-56); AST/SGOT 17 U/L (14-36); BLOOD UREA NITROGEN 17 mg/dL (7-21); CALCIUM 9.1 mg/dL (8.4-10.5); GFR NON-AFRICAN AMERICAN 57
[2018-10-22 08:42] VITALS: BP 124/80; PULSE 76; TEMP 98.4; O2SAT 95
[2018-10-22] MEDS: oxyCODONE 20 mg ER Tab (oxyCONTIN) PO SCH (09:30)
[2018-10-22] MEDS: buPROPion 150 mg/24 Hours XL Tab PO SCH (09:30)
[2018-10-22] MEDS ORDERED: Potassium Chloride 20 mEq ER Tab PO ONE (09:30)
== END 2018-10-22 13:59 | disposition home or self-care (01) | DRG 392 ==
LOC: ED 09:00 → ERH 12:17 → 3RSO 13:53
PROVIDERS: ADMIT Internal Medicine; ATTEND Internal Medicine
DX: A08.4 Viral intestinal infection, unspecified (principal); F11.23 Opioid dependence with withdrawal; R65.10 Systemic inflammatory response syndrome (SIRS) of non-infectious origin without acute organ dysfunction; E86.0 Dehydration; I10 Essential (primary) hypertension; F32.9 Major depressive disorder, single episode, unspecified; F41.9 Anxiety disorder, unspecified; M54.2 Cervicalgia; M54.9 Dorsalgia, unspecified; H54.8 Legal blindness, as defined in USA; Z86.03 Personal history of neoplasm of uncertain behavior; Z88.0 Allergy status to penicillin

== ENCOUNTER 2019-02-24 08:35 | Emergency (ER) | payer BC ==
[2019-02-24 08:44] VITALS: BMI 35.4
[2019-02-24 08:49] VITALS: RESP 18
--- NOTE | 2019-02-24 09:09 | ED PDOC ---
Arrival/HPI - History of Present Illness Narrative History of Present Illness (Text): 02/24/19 09:03 Patient is a 34 year old female with past medical history of chronic neck pain s/p cervical laminectomy on chronic opiates presenting with chest discomfort, epigastric abdominal pain, nausea, vomiting, and diaphoresis starting 2 days ago. Chest discomfort started at rest and is aggravated by nausea and vomiting. Patient states she has been unable to take her chronic narcotics due to vomiting. Denies fevers, chills, diarrhea, dysuria. Time/Duration: < week Symptom Onset: Sudden Symptom Course: Unchanged Quality: Stabbing <Dorothea Humphries - Last Filed: 02/24/19 12:24> Past Medical History - Provider Review Nursing Documentation Reviewed: Yes - Past History Past History: Non-Contributing - Infectious Disease Hx of Infectious Diseases: None - Tetanus Immunization Tetanus Immunization: Unknown - Cardiac Hx Cardiac Disorders: Yes Hx Hypertension: Yes - Pulmonary Hx Respiratory Disorders: No - Neurological Hx Neurological Disorder: Yes (brain tumor calcified) - HEENT Hx HEENT Disorder: Yes Hx Blind: Yes (legally blind) - Renal Hx Renal Disorder: No - Endocrine/Metabolic Hx Endocrine Disorders: No - Hematological/Oncological Hx Blood Disorders: No - Integumentary Hx Dermatological Disorder: No - Musculoskeletal/Rheumatological Hx Musculoskeletal Disorders: Yes (back pain) Hx Degenerative Joint Disease: Yes Hx Falls: No Hx Herniated Disk: Yes (spinal surgery) - Gastrointestinal Hx Gastrointestinal Disorders: No - Genitourinary/Gynecological Hx Genitourinary Disorders: No - Psychiatric Hx Psychophysiologic Disorder: Yes Hx Anxiety: Yes Hx Depression: Yes Hx Substance Use: No - Surgical History Hx Musculoskeletal Surgery: Yes - Anesthesia Hx Anesthesia: Yes Hx Anesthesia Reactions: No Hx Malignant Hyperthermia: No <Dorothea Humphries - Last Filed: 02/24/19 12:24> - Provider Review Primary Care Physician: Candelario Nava MD <Israel Andrews - Last Filed: 02/24/19 18:16> Family/Social History - Physician Review Nursing Documentation Reviewed: Yes Family/Social History: No Known Family HX Smoking Status: Never Smoked Hx Alcohol Use: No Hx Substance Use: No Hx Substance Use Treatment: No <Dorothea Humphries - Last Filed: 02/24/19 12:24> Allergies/Home Meds <Humphries,Agape L - Last Filed: 02/24/19 12:24> <Israel Andrews - Last Filed: 02/24/19 18:16> Allergies/Adverse Reactions: Allergies Penicillins Allergy (Verified 10/20/18 09:19) ANAPHYLAXIS Home Medications: Home Meds Medication Instructions Recorded Confirmed Fluoxetine HCl [Prozac] 40 mg PO DAILY 05/19/18 10/20/18 Zolpidem [Ambien] 10 mg PO HS 05/19/18 10/20/18 buPROPion XL [Wellbutrin XL] 150 mg PO DAILY 05/19/18 10/20/18 oxyCODONE [oxyCODONE Immediate 20 mg PO Q4 06/19/18 10/20/18 Release Tab] oxyCODONE [oxyCONTIN Extended 60 mg PO Q12 06/19/18 10/20/18 Release Tab] Review of Systems - Physician Review All systems were reviewed & negative as marked: Yes - Review of Systems Cardiovascular: Chest Pain Gastrointestinal: Abdominal Pain, Nausea, Vomiting. absent: Diarrhea Genitourinary Female: Normal <Dorothea Humphries - Last Filed: 02/24/19 12:24> Physical Exam Vital Signs Reviewed: Yes Vital Signs Pulse Resp BP Pulse Ox 02/24/19 08:36 75 18 140/97 H 100 Temperature: Afebrile Blood Pressure: Hypertensive Pulse: Regular Respiratory Rate: Normal Appearance: Positive for: Uncomfortable, Other (diaphoretic) Pain Distress: Mild Mental Status: Positive for: Alert and Oriented X 3 - Systems Exam Head: Present: Atraumatic, Normocephalic Pupils: Present: PERRL Extroacular Muscles: Present: EOMI Conjunctiva: Present: Normal Respiratory/Chest: Present: Clear to Auscultation Cardiovascular: Present: Regular Rate and Rhythm, Normal S1, S2 Abdomen: No: Tenderness, Distention Lower Extremity: Present: Normal Inspection Neurological: Present: GCS=15, CN II-XII Intact, Speech Normal Skin: Present: Warm, Dry, Normal Color Psychiatric: Present: Alert, Oriented x 3 <Dorothea Humphries - Last Filed: 02/24/19 12:24> Vital Signs Pulse Pulse Resp BP Pulse Ox 02/24/19 10:49 88 18 148/82 97 02/24/19 09:10 95 H 02/24/19 08:36 75 18 140/97 H 100 <JulianaIsrael - Last Filed: 02/24/19 18:16> Medical Decision Making ED Course and Treatment: 02/24/19 09:12 Impression: 34 year old female with chest discomfort, abdominal pain, vomiting Plan: - CBC, CMP - EKG, troponin - CXR - Urinalysis - Reglan - Reassess and disposition Prior Visits: Notes and results from previous visits were reviewed. Progress Notes: 02/24/19 12:30 Labs and imaging reviewed. Patient reports improvement in symptoms. Discussed patient with Dr. Nava. Patient optimized for discharge and followup with PMD. <Dorothea Humphries - Last Filed: 02/24/19 12:24> ED Course and Treatment: 02/24/19 11:56 Chest X-ray reviewed by Naty Palomino MD, shows: FINDINGS: LUNGS: No active pulmonary disease. PLEURA: No significant pleural effusion identified, no pneumothorax apparent. CARDIOVASCULAR: No aortic atherosclerotic calcification present. Normal cardiac size. No pulmonary vascular congestion. OSSEOUS STRUCTURES: No significant abnormalities. VISUALIZED UPPER ABDOMEN: Normal. OTHER FINDINGS: None. IMPRESSION: No active disease. 02/24/19 18:15 pt seen with [place] on chronic opaites, presents with cp, vomiting. "could not take her opiates". in er, in nad. luekocytosis non specific cxr neg abd sof tno ttp, urine neg. discussed with pmd. statespt can f/u oupt. ekg mild qtc prolongation,baseline from preivous. - Lab Interpretations Lab Results: PT 14.0 SECONDS (9.4-12.5) H 02/24/19 09:10 INR 1.24 02/24/19 09:10 APTT 33.3 Seconds (26.9-38.3) 02/24/19 09:10 Troponin I < 0.01 ng/mL 02/24/19 09:38 Total Bilirubin 0.7 mg/dL (0.2-1.3) 02/24/19 09:38 AST 30 U/L (14-36) 02/24/19 09:38 ALT 16 U/L (7-56) 02/24/19 09:38 Alkaline Phosphatase 128 U/L (38-126) H D 02/24/19 09:38 Total Protein 9.4 g/dL (5.8-8.3) H 02/24/19 09:38 Albumin 5.3 g/dL (3.0-4.8) H 02/24/19 09:38 Globulin 4.2 gm/dL 02/24/19 09:38 Albumin/Globulin Ratio 1.3 (1.1-1.8) 02/24/19 09:38 Urine Color Yellow (YELLOW) 02/24/19 09:12 Urine Appearance Clear (CLEAR) 02/24/19 09:12 Urine pH 5.5 (4.7-8.0) 02/24/19 09:12 Ur Specific [place] >= 1.030 (1.005-1.035) 02/24/19 09:12 Urine Protein 30 mg/dL (<30 mg/dL) H 02/24/19 09:12 Urine Glucose (UA) Negative mg/dL (NEGATIVE) 02/24/19 09:12 Urine Ketones Trace mg/dL (NEGATIVE) H 02/24/19 09:12 Urine Blood Negative (NEGATIVE) 02/24/19 09:12 Urine Nitrate Negative (NEGATIVE) 02/24/19 09:12 Urine Bilirubin Small (NEGATIVE) H 02/24/19 09:12 Urine Urobilinogen 0.2 E.U./dL (<1 E.U./dL) 02/24/19 09:12 Ur Leukocyte Esterase Negative Tim/uL (NEGATIVE) 02/24/19 09:12 Urine RBC 0 - 2 /hpf (0-2) 02/24/19 09:12 Urine WBC 1 - 3 /hpf (0-6) 02/24/19 09:12 Ur Epithelial Cells 4 - 5 /hpf (0-5) 02/24/19 09:12 Calcium Oxalate Crystal Mod /hpf (NONE) 02/24/19 09:12 Amorphous Sediment Few /hpf (NONE) 02/24/19 09:12 Urine Bacteria Few /hpf (NONE) 02/24/19 09:12 Urine Other Uyeast /hpf 02/24/19 09:12 - RAD Interpretation Radiology Orders: 02/24/19 09:12 CHEST PORTABLE [RAD] Stat - Medication Orders Current Medication Orders: Discontinued Medications Metoclopramide HCl (Reglan) 10 mg IVP STAT STA Stop: 02/24/19 09:13 Last Admin: 02/24/19 09:24 Dose: 10 mg IVP Administration Document 02/24/19 09:24 BB (Rec: 02/24/19 09:24 BB [facility] – [id number]) Charges for Administration # of IVP Administrations 1 <Israel Andrews - Last Filed: 02/24/19 18:16> - PA / FERMENTER / Resident Statement / has reviewed & agrees with the documentation as recorded. / has examined the patient and agrees with the treatment plan. <Israel Andrews - Last Filed: 02/24/19 18:16> Disposition/Present on Arrival - Present on Arrival Any Indicators Present on Arrival: No History of DVT/PE: No History of Uncontrolled Diabetes: No Urinary Catheter: No History of Decub. Ulcer: No History Surgical Site Infection Following: None - Disposition Have Diagnosis and Disposition been Completed?: Yes Disposition Time: 11:10 <Dorothea Humphries - Last Filed: 02/24/19 12:24> <Israel Andrews - Last Filed: 02/24/19 18:16> - Disposition Diagnosis: Chest pain Disposition: HOME/ ROUTINE Condition: STABLE Discharge Instructions (ExitCare): Chest Pain (ED) Additional Instructions: follow up with your doctor/personal trainer. return to any er with worsening. Prescriptions: Prochlorperazine Maleate [Compazine] 5 mg PO Q8 PRN #10 tablet PRN Reason: Nausea/Vomiting Referrals: Rambo Rodriguez MD [Staff Provider] - Follow up with primary Candelario Nava MD [Primary Care Provider] - Follow up with primary Forms: [employer] ([place]ese)
[2019-02-24 09:29] LABS: BASO # 0.01 K/mm3 (0.0-2.0); BASO % 0.1 % (0.0-3.0); HEMOGLOBIN 14.8 g/dL (12.0-16.0); LYMPH # 1.6 (1.2-3.4); LYMPH % 9.1 % (22.0-35.0); MEAN CELL VOLUME 74.9 fl (80.0-105.0); MEAN CORPUSCULAR HEMOGLOBIN 23.7 pg (25.0-35.0); MEAN CORPUSCULAR HGB CONC 31.6 g/dl (31.0-37.0); MEAN PLATELET VOLUME 9.6 fl (7.0-11.0); MONO # 0.8 (0.1-0.6); MONO % 4.2 % (1.0-6.0); RBC 6.25 10^6/uL (3.5-6.1); RED CELL DISTRIBUTION WIDTH 15.2 % (11.5-14.5); WHITE BLOOD COUNT 17.8 10^3/uL (4.5-11.0)
[2019-02-24 09:33] LABS: INR 1.24; PARTIAL THROMBOPLASTIN TIME 33.3 Seconds (26.9-38.3)
[2019-02-24 09:48] LABS: PH,URINE 5.5 (4.7-8.0); URINE BILIRUBIN SMALL (NEGATIVE); URINE BLOOD NEGATIVE (NEGATIVE); URINE GLUCOSE (UA) NEGATIVE (NEGATIVE); URINE LEUKOCYTE ESTERASE NEGATIVE Leu/uL (NEGATIVE); URINE PROTEIN 30 mg/dL (<30 mg/dL); URINE UROBILINOGEN 0.2 E.U./dL (<1 E.U./dL)
[2019-02-24 09:50] LABS: URINE APPEARANCE CLEAR (CLEAR); URINE COLOR YELLOW (YELLOW)
[2019-02-24 09:57] LABS: BARBITURATES, UR POSITIVE (NEGATIVE); BENZODIAZEPINES, UR NEGATIVE (NEGATIVE); OPIATES, UR POSITIVE (NEGATIVE); PHENCYCLIDINE, UR NEGATIVE (NEGATIVE)
[2019-02-24 10:03] LABS: ALB/GLOB RATIO 1.3 (1.1-1.8); ALBUMIN 5.3 g/dL (3.0-4.8); ALT/SGPT 16 U/L (7-56); AST/SGOT 30 U/L (14-36); BLOOD UREA NITROGEN 21 mg/dL (7-21); CALCIUM 10.5 mg/dL (8.4-10.5); GFR NON-AFRICAN AMERICAN 51
[2019-02-24 10:14] LABS: TROPONIN I < 0.01 ng/mL
[2019-02-24 10:21] LABS: URINE CALCIUM OXALATE CRYSTALS MOD /hpf; URINE RBC 0 - 2 /hpf (0-2)
[2019-02-24 10:22] LABS: URINE AMORPHOUS SEDIMENT FEW /hpf; URINE BACTERIA FEW /hpf
--- NOTE | 2019-02-24 10:45 | RAD ---
Date of service: 02/24/2019 HISTORY: cp COMPARISON: 10/20/2018 TECHNIQUE: 1 view obtained. FINDINGS: LUNGS: No active pulmonary disease. PLEURA: No significant pleural effusion identified, no pneumothorax apparent. CARDIOVASCULAR: No aortic atherosclerotic calcification present. Normal cardiac size. No pulmonary vascular congestion. OSSEOUS STRUCTURES: No significant abnormalities. VISUALIZED UPPER ABDOMEN: Normal. OTHER FINDINGS: None. IMPRESSION: No active disease.
[2019-02-24 10:50] VITALS: BP 148/82; PULSE 88; O2SAT 97
--- NOTE | 2019-02-24 12:29 | CARD ---
APPROVED REPORT Date of service: 02/24/2019 EKG Measurement Heart [id number] <Conclusion> Normal sinus rhythm with sinus arrhythmia' QT Prolonged.
== END 2019-02-24 11:10 | disposition home or self-care (01) ==
LOC: ED 08:35
DX: R07.9 Chest pain, unspecified (principal); I10 Essential (primary) hypertension
CPT/HCPCS: 71045; 80053; 81001; 81025; 82550; 83615; 83735; 84484; 85025; 85610; 85730; 93005; 96374; 99284; G0480; J2765